=== PATIENT | male | born 1935 | race Caucasian/White ===

== ENCOUNTER 2016-12-12 01:47 | Emergency (ER) | payer MEDICARE ==
[2016-12-12 02:07] LABS: Hematocrit 42.2 % (42.0-52.0); Hemoglobin 14.4 gm/dL (13.5-18.0); Mean Cell Volume 84.4 fl (78-100); Mean Corpuscular Hemoglobin 28.8 pg (27-31); Mean Corpuscular Hgb Conc 34.1 g/dl (32-36); Mean Platelet Volume 9.3 fl (6.0-9.5); Neutrophil # 2.6 K/mm3 (1.3-6.0); Neutrophil % 48.3 % (42-75.0); Platelet Count 246 K/mm3 (150-450); Red Cell Distribution Width 12.6 % (11.5-14.0); White Blood Count 5.4 K/mm3 (4.0-10.5)
[2016-12-12 02:15] LABS: Prothrombin Time (Patient) 21.3 Seconds (9.4-11.4)
[2016-12-12 02:20] LABS: INR 2.05 INR (0.90-1.10); Partial Thrombolplastin Time 33.9 Seconds (24-32)
[2016-12-12 02:26] LABS: ALT 34 U/L (19-67); AST 26 U/L (0-48); Albumin * 3.6 gm/dl (3.4-5.0); Alkaline Phosphatase * 54 U/L (50-170); Anion Gap 9.6 mmol/L (6.8-13.8); BNP * 110 pg/mL (5-650); BUN/Creatinine Ratio 14.1 (9.0-21.6); Bilirubin, Total 0.4 mg/dL (0.0-1.1); Blood Urea Nitrogen 18 mg/dL (6-23); Ca. Corrected For Albumin 8.6 mg/dL (8.4-10.2); Calcium * 8.6 mg/dL (7.9-10.9); Carbon Dioxide 32.8 mmol/L (24-32.6); Chloride 104 mmol/L (97-106); Glucose * 113 mg/dL (70-110); Potassium 3.4 mmol/L (3.4-4.6); Sodium 143 mmol/L (132-142); Total Protein 6.6 gm/dL (6.2-8.2)
[2016-12-12 02:27] LABS: Troponin I Less than 0.017 ng/ml (0.00-0.10)
--- NOTE | 2016-12-12 03:19 | ERNOTE ---
Chest Pain/Cardiac HPI Date of Service: 12/12/16 Chief Complaint: Chest Pain Time Seen by Provider: 12/12/16 02:08 Source: patient Exam Limitations: no limitations Immunizations: IMMUNIZATION HX History of Influenza Vaccine Yes Hx Pneumococcal Vaccination No Allergies/Adverse Reactions: Allergies levofloxacin [From Levaquin] Allergy (Intermediate, Verified 12/12/16 02:04) CHEST PAIN ciprofloxacin [From Cipro] Allergy (Unknown, Verified 12/12/16 02:04) cephalexin Adverse Reaction (Mild, Verified 12/12/16 02:04) URINARY PROBLEMS Penicillins Adverse Reaction (Mild, Verified 12/12/16 02:04) ARM SWELLING AFTER INJECTION HAS TAKEN ORAL PCN WITH NO REACTION Sulfa (Sulfonamide Antibiotics) Adverse Reaction (Mild, Verified 12/12/16 02:04) RASH Home Medications: HOME MEDICATIONS Atenolol [Tenormin] 50 mg PO DAILY 06/12/12 [Last Taken 02/18/14 50 MG] Multivitamins [Multivitamin Elda] 1 cap PO DAILY 06/12/12 [Last Taken 1 CAP] [place]-3/Dha/Epa/Fish Oil [Fish Oil 1,000 mg Softgel] 1 each PO DAILY 06/12/12 [ Last Taken 02/18/14 1 EACH] Omeprazole [Prilosec Generic] 20 mg PO DAILY 06/12/12 [Last Taken 02/18/14 20 MG ] Fluticasone Propionate [Flonase] 1 spray NS BID PRN 02/16/14 [Last Taken 1 SPRAY] Glucosamine/Chondroitin Sulf A [Glucosamine Chondroitin Cap] 1 each PO DAILY [Last Taken 02/18/14 1 EACH] Warfarin Sodium [Coumadin] 3 mg PO DAILY 03/16/14 [Last Taken Unknown] amLODIPine BESYLATE [Norvasc] 10 mg PO DAILY 03/16/14 [Last Taken Unknown] Cetirizine HCl [Zyrtec] 10 mg PO DAILY PRN 03/20/16 [Last Taken Unknown] Hydrochlorothiazide [Hydrodiuril] 25 mg PO DAILY 03/20/16 [Last Taken Unknown] guaiFENesin [Mucinex] 600 mg PO DAILY 03/20/16 [Last Taken Unknown] Narrative: STATES HE AWAKENED AT 2330 WITH C/O CENTRAL CHEST PRESSURE AND SOB THAT WENT AWAY WITHIN 10 SEC WHEN HE STOOD UP. HE SAYS HE HAS A HX OF GERD BUT THAT THIS WAS NOT HEART BURN. THERE WAS NO RADIATION. HE TOOK NOTHING FOR HIS DISCOMFORT. HE IS PAIN FREE NOW. THERE WAS NO SWEATING. HE ALSO SAYS HE WAS TESTED FOR O.S.A. AND TOLD HE DID NOT HAVE IT BUT USES 2 L O2/ [place] AT NIGHT. HE WAS TOLD BY ONE DRZack THAT HE HAD COPD BUT A OPTOMETRIC TECHNOLOGIST TOLD HIM HE DID NOT AND STOPPED THE MDI HE HAD BEEN USING. HE SAW HIS PCP YESTERDAY FOR A 6 MONTH CHECK UP AND TOLD HIM ABOUT A PROBLEM HE HAD BEEN HAVING WITH SOB WHEN HE BENDS OVER TO [place] UP A GOLF BALL. HIS DR. THEN ORDERED A ECG TO BE DONE WEDNESDAY. HE DENIES A HX OF CAD BUT DOES HAVE A FIB FOR WHICH HE IS ON ATENOLOL AND WARFARIN ( HE ALSO HAD HX OF LEFT DVT) AND SAYS HE IS ALWAYS IN SINUS RHYTHM NOW. Review of Systems - Review of Systems Constitutional: Present: See HPI EYE: Present: no symptoms reported ENT: Present: no symptoms reported Respiratory: Present: See HPI, shortness of breath Cardiology: Present: See HPI, chest pain Gastrointestinal/Abdominal: Present: no symptoms reported Genitourinary: Present: no symptoms reported Musculoskeletal: Present: no symptoms reported Skin: Present: no symptoms reported Neurological: Present: no symptoms reported Endocrine: Present: no symptoms reported Hematologic/Lymphatic: Present: no symptoms reported Psych: Present: no symptoms reported All Other Systems: All systems neg except as marked - Patient's Past Medical History Patient History - Medical: GERD Patient History - Cardiac/Respiratory: Atrial Fibrillation, Deep Vein Thrombosis , Hypertension, Hyperlipidemia Patient History - Cancer: Skin Patient History - Surgical Procedures: Cholecystectomy, Colon Resection, Other Patient History - Other: None - Social History Living Situations: home Psych History: No pertinent hx Smoking Status: Former smoker Alcohol Use: none Drug Use: none - Immunizations Hx Pneumococcal Vaccination: No History of Influenza Vaccine: Yes Physical Exam - Physical Exam General Appearance: Present: wd/wn, alert, no apparent distress Respiratory: Present: no respiratory distress, normal breath sounds, no accessory muscle use, chest nontender, lungs clear Cardiovascular/Chest: Present: regular rate, rhythm, no murmur, normal peripheral pulses Peripheral Pulses: N=norm/S=strong/W=weak/B=bound/A=absent: Radial (R): Normal, Radial (L): Normal Gastrointestinal/Abdominal: Present: normal bowel sounds, nondistended, soft, no organomegaly, tenderness - MINIMAL EPIGASTRIC TENDERNESS TO PALPATION. Extremity Exam: Present: no edema Neurological Exam: Present: alert, oriented, normal mood/affect Skin Exam: Present: normal color ED Progress - Results and Orders Patient's Lab Results:: I have reviewed the patient's lab results. Results and Orders: ALL NEGATIVE INCLUDING #1 TROPONIN == > 0.017 WITH INR AT 2.05 ( HE IS ON COUMADIN.) REPEAT 4 HOUR TROPONIN IS ALSO NEGATIVE. - Vital Signs Vital Signs: Vital Signs 12/12/16 12/12/16 12/12/16 01:53 01:54 02:09 Temperature 37.4 C Pulse Rate 64 63 67 Respiratory 14 10 L Rate Blood Pressure 161/78 150/86 O2 Sat by Pulse 95 95 Oximetry 12/12/16 12/12/16 02:28 03:04 Temperature Pulse Rate 66 62 Respiratory 14 14 Rate Blood Pressure 133/70 146/86 O2 Sat by Pulse 98 98 Oximetry - EKG EKG: NSR, RBBB, unchanged from EKG read: Interp. by me - X-Ray X-Ray #1 X-Ray: chest Interpretation: Interp. by me - RIGHT LUNG UNCHANGED LEFT LUNG WITH ELEVATION OF L DIAPHRAGM AND LLL ATELECTASIS. - Progress/Reassessment Chief Complaint: Chest Pain Progress:: Improved - PAIN FREE SINCE HE GOT HERE. Departure - Departure Clinical Impression: Chest pain of unknown etiology Disposition: Home Follow Up Needed Condition: Good Instructions: Chest Pain Observation Additional Instructions: THERE IS NO SIGN OF A HEART ATTACK THIS MORNING BUT IT DOES NOT MEAN THAT YOU DO NOT HAVE CORONARY ARTERY DISEASE. YOUR SHOULD RECHECK WITH YOUR FAMILY DOCTOR ON WEDNESDAY, LET THEM KNOW YOUR WERE HERE FOR CHEST PAIN AND THEY WILL PROBABLY WANT TO EVALUATE YOU FURTHER. IT IS POSSIBLE YOUR CHEST PAIN IS DUE TO ANOTHER PROBLEM , LIKE REFLUX DISEASE THAT CAN CAUSE SPASM OF THE ESOPHAGUS OR POSSIBLY SLEEP APNEA . THEY WILL DISCUSS THIS WITH YOU. IN THE MEANTIME IT WILL NOT HURT FOR YOU TO TAKE PEPCID, OVER THE COUNTER, TWICE A DAY FOR 10 DAYS , OR UNTIL YOUR DOCTOR TELLS YOU DIFFERENTLY . Referrals: Chase Ann MD [Primary Care Provider] -
--- OUTSIDE RECORDS SUMMARY | 2016-12-12 04:22 | XMS REPORT | Continuity of Care Document ---
:1935 Author Organization [facility] ([facility]) Address [address] [place] [address] Phone [phone] Care Team Providers Name Role Phone Chase Ann Primary Care Provider [phone] Source Comments This disclosure is being made pursuant to the Care Everywhere program, applicable federal and state laws, and may not contain all informaitonavailable regarding this patient.[facility] ([facility]) Active Allergies and Adverse Reactions Allergen Noted Date Severity Reactions Comments Cephalexin 07/22/2011 OTHER Has kidney failure Cephalosporins 11/30/2012 OTHER Urination irritations Sulfa (Sulfonamide Antibiotics) 07/22/2011 OTHER Urination irritations Current Medications Prescription Sig. Disp. Refills Start Date End Date Status atenolol 50 mg tablet Take 25 mg by Active mouth daily. [place]-3 Fatty Take 1,000 mg by Active Acids-Vitamin E (FISH OIL) mouth daily. 1,000 mg Cap Cetirizine (ZYRTEC) 10 mg Take 10 mg by Active Cap mouth daily. GLUCOSAM & CHONDROIT-MV & Take 1,500 mg by Active MIN3 (GLUCOSAMINE mouth daily. &[id number] PO) warfarin 2 mg tablet Take 3 mg by Active mouth daily. MULTIVITAMIN PO Take 1 Tab by Active mouth daily. amLODIPine 10 mg tablet Take 20 mg by Active mouth daily. omeprazole 20 mg extended Take 1 Cap by 30 Cap 1 05/29/2013 Active release capsule mouth daily. Indications: PREVENTION OF STRESS ULCER hydrochlorothiazide 25 mg Take 25 mg by Active tablet mouth daily. Active Problems Problem Noted Date Subacute thyroiditis 03/12/2015 Pseudophakia, both eyes 06/06/2014 Posterior vitreous detachment, left eye 06/06/2014 PVD (posterior vitreous detachment) 06/06/2014 Scotoma, arc[place] 06/06/2014 Dizziness 05/29/2014 Peripheral vestibulopathy of left ear 05/29/2014 DVT (deep venous thrombosis) 05/28/2013 Cerebral edema 05/26/2013 Brain tumor 05/25/2013 S/P craniotomy 05/25/2013 Compression of brain 05/25/2013 Atrial fibrillation, controlled 05/25/2013 Thyroiditis 11/30/2012 Meningioma 11/30/2012 Immunizations Name Dates Previously Given Next Due Influenza, unspecified 04/25/2013,05/12/2011 Social History Tobacco Use Types Packs/Day Years Used Date Former Smoker Cigars 0.3 Quit: 07/26/1979 Smokeless Tobacco: Never Used Tobacco Cessation:Counseling Given: Yes Comments: Alcohol Use Drinks/Week oz/Week Comments Yes Last Filed Vital Signs Vital Sign Reading Time Taken Blood Pressure 123/73 04/22/2016 10:56 AM CDT Pulse 72 04/22/2016 10:56 AM CDT Temperature 36.6 C (97.9 F) 04/22/2016 10:56 AM CDT Respiratory Rate 19 05/30/2013 4:00 PM CLINICAL RESEARCH SCIENTIST Height 1.791 m (5' 10.51") 04/22/2016 10:56 AM CDT Weight 99.791 kg (220 lb) 04/22/2016 10:56 AM CDT Body Mass Index 31.11 04/22/2016 10:56 AM CDT Oxygen Saturation 94% 05/30/2013 4:00 PM CLINICAL RESEARCH SCIENTIST Plan of Care Date Type Specialty Providers Description 04/21/2017 Appointment Radiology Chief Comp: Patient Reported Reason For Visit 04/21/2017 Appointment Neurosurgery Hung Artis MD Chief Comp: Patient [address] [place] [address] [phone] (Fax) 05/09/2018 Wait List Neurology Health Maintenance Due Date Last Done Comments Hepatitis B Vaccine (1 of 3 - Primary 1935 Series) Tdap Vaccine 02[birth year]/1944 Lipid Disorder Screening 1953 Td Vaccine 1953 Colonoscopy 1983 Zoster Vaccine 1993 Pneumococcal Vaccine (1 of 2 - PCV13) 1998 Influenza Vaccine: Seasonal (#1) 02/24/2016 04/25/2013, 05/12/2011 Results from Last 3 Months Not on file
[2016-12-12 07:10] VITALS: BP 148/81
== END 2016-12-12 07:24 | disposition home or self-care (01) ==
LOC: ER 01:47
DX: R07.9 Chest pain, unspecified (principal); Z87.891 Personal history of nicotine dependence; I48.91 Unspecified atrial fibrillation; Z79.01 Long term (current) use of anticoagulants; Z86.718 Personal history of other venous thrombosis and embolism; I10 Essential (primary) hypertension; K21.9 Gastro-esophageal reflux disease without esophagitis; Z85.828 Personal history of other malignant neoplasm of skin; R73.01 Impaired fasting glucose

== ENCOUNTER 2017-03-31 06:50 | Day surgery (SDC) | payer MEDICARE ==
[~2017-03-31 06:50] MED LIST: RINGER'S SOLUTION,LACTATED 1,000 ML IV PRN
[2017-03-31] MEDS: RINGER'S SOLUTION,LACTATED 1,000 ML IV ONE ×3 (07:25→08:40)
[2017-03-31] MEDS ORDERED: RINGER'S SOLUTION,LACTATED 1,000 ML IV PRN (09:36)
[2017-03-31 11:22] VITALS: BP 109/60
--- NOTE | 2017-03-31 18:42 | OR ---
Operative Report - Dictated Report Narrative: OPERATIVE REPORT DATE OF OPERATION: 03/31/2017 PREOPERATIVE DIAGNOSIS: History of colon polyp. No recent dedicated colon studies. POSTOPERATIVE DIAGNOSIS: Colon polyps at 100 cm, 80 cm, 70 cm, 50 cm, 45 cm 2 , and 40 cm. (Pathology pending) Significant sigmoid diverticulosis OPERATION: Colonoscopy with hot biopsy forceps polypectomies 7 SURGEON: Camilo Brown MD ANESTHESIA: HEIDI Sung CRNA INDICATIONS FOR PROCEDURE: The patient is an 82-year-old male referred by JAYDE Irene. 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 His last colon exam by Dr. Hernandez was normal in 2004 FINDINGS: 3-5mm polyps at 100 cm, 80 cm, 70 cm, 50 cm, 45 cm 2, and 40 cm. Significant sigmoid diverticulosis NARRATIVE OF PROCEDURE: The patient was identified in the holding area, and prior to the administration of anesthetic, a multidisciplinary timeout was observed. With the patient in the left lateral position and after the administration of intravenous sedation, the perineum was inspected. There was no evidence of pilonidal disease or skin breakdown. The external appearance of the anus was normal. Sphincter tone was good. The flexible fiberoptic colonoscope was inserted into the rectum which was insufflated with air. The rectal mucosa and submucosal vascular pattern appeared normal, the prep was seen to be complete. The scope was advanced through the sigmoid colon, which contained numerous large non-impacted noninflamed diverticular openings. The scope was advanced up the descending colon, and around the splenic flexure where the triangular haustral architecture of the transverse colon was seen. The scope was advanced across the transverse colon, around the hepatic flexure to the cecum, where the confluence of tenia and the ileocecal valve were identified. The mucosa at this level appeared normal. The scope was then slowly withdrawn in a circular fashion so that all aspects of colonic mucosa were inspected. The colon was relatively normal in course and caliber. The haustral architecture appeared well preserved throughout with no evidence of external compression. The mucosa and submucosal vascular pattern appeared normal, specifically there was no gross evidence to suggest colitis or inflammatory bowel disease and no AV malformations were seen. The diverticulosis was significant and agreeing confined primarily to the sigmoid colon. Polyps were encountered at 100 cm, 80 cm, 70 cm, 50 cm, 45 cm 2, and 40 cm. These appeared adenomatous in character and ranged between 3 and 5 mm in size. The scope was gradually withdrawn to the level of the rectum. As much insufflated air as possible was removed. The scope was withdrawn from the patient and the procedure terminated. The patient tolerated the anesthetic and procedure well without complication and was transferred back to the ambulatory surgery area awake and in stable condition. The patient remained stable throughout a period of postoperative observation. He denied abdominal discomfort, was able to tolerate by mouth intake, and was up without assistance. I shared the operative findings with the patient and he was given copies of the photographs which appear in the medical record. He was discharged home with instructions not to engage in hazardous activity today, but may resume normal activity tomorrow, and advance diet as tolerated. He is to continue those medications as listed in the history and physical exam. He is to restart his Coumadin tomorrow evening at a 3 mg daily dose. He will follow-up in the anticoagulation clinic for monitoring. He has phone numbers to call if he does have bleeding. I made arrangements to contact him with the biopsy reports and will make additional recommendations for treatment and follow -up based upon those results. Reviewed and electronically signed
== END 2017-03-31 06:51 | disposition home or self-care (01) ==
LOC: AMB 06:50
PROVIDERS: ATTEND Surgery
PROC: 0DBE8ZX Excision of Large Intestine, Via Natural or Artificial Opening Endoscopic, Diagnostic (ICD-10-PCS; principal; 2017-03-31 08:00)
DX: Z12.11 Encounter for screening for malignant neoplasm of colon (principal); K63.5 Polyp of colon; K57.30 Diverticulosis of large intestine without perforation or abscess without bleeding; I10 Essential (primary) hypertension; E78.5 Hyperlipidemia, unspecified; E03.9 Hypothyroidism, unspecified; I48.91 Unspecified atrial fibrillation; K21.9 Gastro-esophageal reflux disease without esophagitis; N40.0 Benign prostatic hyperplasia without lower urinary tract symptoms; G47.33 Obstructive sleep apnea (adult) (pediatric); Z68.32 Body mass index [BMI] 32.0-32.9, adult; Z86.010 Personal history of colon polyps

== ENCOUNTER 2020-11-11 08:00 | Inpatient (IN) ==
--- NOTE | 2020-11-06 08:39 | ANES ---
Anesthesia Pre Procedure Eval HOME MEDICATIONS Multivitamins [Multivitamin Elda] 1 cap PO DAILY 06/12/12 [Last Taken 02/18/14 1 CAP] [place]-3/Dha/Epa/Fish Oil [Fish Oil 1,000 mg Softgel] 1 ea PO DAILY 06/12/12 [Last Taken 02/18/14 1 EACH] Cetirizine HCl [Zyrtec] 10 mg PO DAILY PRN 03/20/16 [Last Taken Unknown] Hydrochlorothiazide [Hydrodiuril] 25 mg PO DAILY 03/20/16 [Last Taken Unknown] Diltiazem HCl [Cardizem LA] 360 mg PO DAILY 06/16/17 [Last Taken Unknown] glucosamine 116 mg-chondroitin 100 mg-dietary supplement #25 capsule 1 cap PO DA REHAN 03/04/18 [Last Taken Unknown] Montelukast Sodium [Singulair] 10 mg PO DAILY 12/03/18 [Last Taken Unknown] ascorbic acid (vitamin C) 1,000 mg tablet 1 g PO DAILY #30 tab 12/08/18 [Last Taken Unknown] atorvastatin 20 mg tablet 20 mg PO DAILY 03/04/20 [Last Taken Unknown] ferrous sulfate 325 mg (65 mg iron) tablet 325 mg PO BID #60 tab 05/17/20 [Last Taken Unknown] potassium chloride 10 mEq tablet,extended release(part/cryst) 30 meq PO DAILY #90 tab 07/11/20 [Last Taken Unknown] omeprazole 20 mg capsule,delayed release 20 mg PO DAILY #90 cap 07/17/20 [Last Taken Unknown] atenolol 50 mg tablet 25 mg PO DAILY #90 tab 11/01/20 [Last Taken Unknown] warfarin 2 mg tablet 3 mg PO DAILY #90 tab 11/01/20 [Last Taken Unknown] Allergies/Adverse Reactions: Allergies Allergy/AdvReac Type Severity Reaction Status Date / Time Sulfa (Sulfonamide Allergy Mild RASH Verified 11/04/20 10:35 Antibiotics) ciprofloxacin [From Cipro] Allergy Unknown Other Verified 11/04/20 10:35 cephalexin AdvReac Mild URINARY Verified 11/04/20 10:35 PROBLEMS - Planned Procedure Planned Procedure: left Arthroplasty Total Knee Medical History (Last Reviewed 11/04/20 @ 10:36 by Maria Eugenia Caraballo LPN) Arrhythmia Onset Date: Unknown Arthritis Onset Date: Unknown Atrial fibrillation Onset Date: Unknown BPH (benign prostatic hyperplasia) Onset Date: Unknown Erectile dysfunction Onset Date: Unknown GERD (gastroesophageal reflux disease) Onset Date: Unknown HTN (hypertension) Onset Date: Unknown Hiatal hernia Onset Date: Unknown Hyperlipidemia Onset Date: Unknown Hyperthyroidism Onset Date: Unknown KECIA (obstructive sleep apnea) Onset Date: 01/21/17 Calculus of kidney Onset Date: Unknown Cataract Onset Date: Unknown DVT (deep venous thrombosis) Onset Date: ~11/2009 Dizziness Onset Date: 02/19/14 Nonspecific Meningioma Onset Date: Unknown Palpitations Onset Date: Unknown Pulmonary embolism Onset Date: ~11/2009 Shoulder pain Onset Date: Unknown Rt Vertigo Onset Date: Unknown Central Surgical History (Last Reviewed 11/04/20 @ 10:36 by Maria Eugenia Caraballo LPN) H/O arthroscopy of left knee Onset Date: ~2010 H/O prostatectomy Onset Date: 12/12/08 Dr. Car Bartholomew -[facility]suprapubic History of appendectomy Onset Date: ~1987 [facility] History of cardiac catheterization Onset Date: 04/08/17 Hx of cataract surgery Onset Date: 04/09/14 03/19/14-left, 04/09/14-right Hx of cholecystectomy Onset Date: ~1982 [facility] Hx of colonoscopy Onset Date: 03/26/20 01/09/05 David-normal. 03/31/17 Dr. Brown - tubular adenoma x3, hyperplastic x4. Recheck 3 yrs. 03/26/20 Stephanie-tubular adenoma x5. Recheck 3-5 yrs. Hx of craniotomy Onset Date: ~04/2013 Left-sided frontal craniotomy for tumor resection Hx of exploratory laparotomy Onset Date: Unknown Hx of meningioma removal Onset Date: 05/25/13 [facility]- atypical Hx of right hemicolectomy Onset Date: ~1987 due to tubulovillous adenoma Skin cancer removal Onset Date: ~11/2015 Dr. Joseph - forearm Family History (Last Reviewed 11/04/20 @ 10:36 by Maria Eugenia Caraballo LPN) Father , age 59 CVA (cerebral vascular accident) Mother , age 72 Liver disease Tuberculosis At young age Brother , age 88 Alzheimers disease Brother Alive and well Sister Alive and well Sister , age 90 -old age No problems noted. - Respiratory Respiratory History: sleep apnea, CPAP/BiPAP home use Smoking Status: Former smoker Discussed smoking cessation including day of surgery: No Sleep Apnea currently treated: Yes Sleep Apnea by current assessment: Yes Discussed Risks/Treatment of KECIA: Yes - Cardiovascular Tolerate Activity: Fair Heart Sounds: S1 & S2, Regular - Anesthesia Assessment and Plan ASA Class: PS, III Anesthesia Type Plan: Block - Left ultrasound guided adductor canal nerve block for postop anangesia, Spinal
[~2020-11-11 08:00] MED LIST changes: +MORPHINE SULFATE 15 MG TABLET.SA PO PRN; -RINGER'S SOLUTION,LACTATED 1,000 ML IV PRN; +ROPIVACAINE/CLONIDIN/KETOROLAC 50 ML SYRINGE IJ PRN; +TRANEXAMIC ACID 1,000 MG in NORMAL SALINE 100 ML IV PRN; +ceFAZolin SODIUM 1 GM VIAL IV PRN
[2020-11-11] MEDS ORDERED: ceFAZolin SODIUM 1 GM VIAL ONE (10:11)
[2020-11-11] MEDS ORDERED: ROPIVACAINE/CLONIDIN/KETOROLAC 50 ML SYRINGE IJ ONE (10:11)
[2020-11-11] MEDS ORDERED: BUPIVACAINE HCL/PF 10 ML VIAL ONE (11:22)
[2020-11-11] MEDS ORDERED: PROPOFOL VIAL IV ONE (11:22)
[2020-11-11] MEDS ORDERED: MIDAZOLAM HCL/PF 5 MG/ML VIAL ONE (11:22)
[2020-11-11] MEDS ORDERED: BUPIVACAINE HCL/EPINEPHRINE 50 ML VIAL IJ ONE (11:22)
[2020-11-11 11:36] LABS: INR 1.17 INR (0.92-1.08); Prothrombin Time (Patient) 12.1 Seconds (9.1-10.7)
[2020-11-11] MEDS: RINGER'S SOLUTION,LACTATED 1,000 ML IV PRN ×3 (11:48→13:45)
[2020-11-11] MEDS ORDERED: oxyCODONE HCL/ACETAMINOPHEN 1 TAB TABLET PO PRN (13:49)
[2020-11-11] MEDS ORDERED: diphenhydrAMINE HCL 50 MG/ML VIAL IV PRN (13:49)
[2020-11-11] MEDS ORDERED: MORPHINE SULFATE 2 MG/ML DISP.SYRIN IV PRN (13:49)
[2020-11-11] MEDS ORDERED: MAG HYDROX/ALUMINUM HYD/SIMETH 30 ML UDC PO PRN (13:49)
[2020-11-11] MEDS ORDERED: ZOLPIDEM TARTRATE 5 MG TABLET PO PRN (13:49)
[2020-11-11] MEDS ORDERED: ACETAMINOPHEN 500 MG TABLET PO PRN (13:49)
[2020-11-11] MEDS ORDERED: MAGNESIUM HYDROXIDE 30 ML UDC PO PRN (13:49)
[2020-11-11] MEDS ORDERED: DEXTROSE 5%-LACTATED RINGERS 1,000 ML IV PRN (13:49)
[2020-11-11] MEDS ORDERED: ONDANSETRON HCL/PF 2 MG/ML VIAL IV PRN (13:49)
[2020-11-11] MEDS ORDERED: LORATADINE 10 MG TABLET PO PRN (13:52)
[2020-11-11] MEDS ORDERED: ASCORBIC ACID 500 MG TABLET PO PRN (13:52)
[2020-11-11] MEDS ORDERED: MONTELUKAST SODIUM 10 MG TABLET PO PRN (13:52)
--- NOTE | 2020-11-11 13:55 | OR ---
Operative Report - Dictated Report Narrative: Date: 11/11/2020 Preoperative diagnosis: Left knee degenerative joint disease. Postoperative diagnosis: Left knee degenerative joint disease. Procedure: Left total knee arthroplasty. Surgeon: Feliciano Navarrete M.D. Donor Relations Manager: Kerwin Lewis PA-C (provided and essential set of skilled, educated hands that assisted with transfer, positioning, prepping, draping, manipulation, retraction, placement of jigs, injection, insertion of implants, irrigation, closure wounds, and dressings all of which could not be performed by the available surgical crew) Anesthesia: Spinal with regional block and local periarticular joint injection. Complications: None Specimens: Bone. Estimated blood loss: Minimal. Tourniquet time: 85 Minutes at 325 millimeters of mercury. Retained implants: Depuy Attune size 8 left lugged cemented posterior stabilized femoral component. Size 8 fixed-bearing cemented tibial platform. 8 by 5 millimeter posterior stabilized cross-linked tibial insert. 41 millimeter medialized patella button. Indications: Mr. Milian is a 85-year-old gentleman who has had longstanding left knee pain and arthrosis. This patient was followed in my clinic for period of time with significant complaints of left knee pain consistent with arthritic changes. He had failed conservative measures including, but not limited to, activity modification, passage of time, medications, and other conservative measures. Patient wished to proceed with surgical treatment. The risks, benefits, and alternatives were discussed in clinic. The risks of , blood clots, bleeding, infection, nerve/tendon blood vessel/ injury, malposition of components, intraoperative fracture, postoperative limited range of motion, persistent pain, failure of components, and need for additional procedures. Patient wished to proceed consent was obtained after answering all questions. Procedure: After marking the correct extremity on the floor, the patient was taken to the operating room. A timeout was performed. IV antibiotics consisting of Ancef were administered prior to the procedure. A regional followed by spinal anesthetic was induced by anesthesia, per my request, on the operative table with all bony prominences well-padded. Cristobal catheter was placed, and a bump was placed under the operative side buttock. SCDs and TYREL hose were utilized on the nonoperative leg. A well-padded tourniquet was applied to the operative thigh. The operative leg was then pre-scrubbed with alcohol, prepped, and draped in a standard sterile fashion. After exsanguinating the extremity with an Esmarch bandage, the tourniquet was inflated. After marking out the anterior knee for standard incision centered over the patella, the skin was incised and dissected down to the joint retinaculum. The joint retinaculum was marked out as well as the horizontal axis of the patella, and a standard medial parapatellar arthrotomy was then made. The most proximal aspect of the quadriceps tendon and the patella tendon insertion were protected from release. A partial synovectomy was performed as well as a resection of the infrapatellar fat pad. The distal femoral fat pad proximal to the trochlea was also resected using cautery. The soft tissues were elevated off the medial aspect of the proximal tibia using a Greenwood elevator ensuring that we did not transect the medial collateral ligament. Upon initial evaluation range of motion was approximately 0 degrees to 130 degrees of flexion. There were signs of advanced arthrosis in the medial and patellofemoral greater than lateral joint spaces. There were large marginal osteophytes which were removed with a rongeur. The knee was hyperflexed and the patella was tucked laterally. Protecting the surrounding soft tissues with Homans, an entry drill was placed down the femoral canal using Whitesides line for guidance into the entry point. The intramedullary femoral alignment gin was utilized in order to cut the distal femur in 5 degrees of valgus resecting 10 millimeters of bone. Next the distal femur was sized to a size 8. A posterior referencing guide was utilized to place the distal femoral cutting block in 3 degrees of external rotation. This was pinned into place. The rotation was confirmed both visually and based on anatomic landmarks. The 4 in 1 cutting jig of the appropriate size was utilized in order to make all bony cuts. The ced wing was used to ensure no notching. Retractors were utilized in order to protect surrounding soft tissues. This cut did not result in any excessive notching. We then cut the box centered over the distal femur. This allowed for resection of the anterior and posterior cruciate ligaments. I then turned my attention to the preparation of the tibia. Using an extra medullary tibial alignment gin, 4 millimeters of bone was resected off the medial articular surface. This was made perpendicular to the mechanical axis of the joint with the alignment gin centered over the ankle mortise. The alignment gin was checked and was noted to be parallel to the mechanical axis, centered over the medial one third of the tibial tubercle, paralleling the anterior surface of the tibia. We then turned our attention to the remaining meniscus and soft tissues. These were removed while protecting the surrounding ligaments and soft tissues. The marginal osteophytes off the anterior, posterior, medial, lateral aspects of the femur and tibia were removed. The tibia was sized out to a size 8. Next the tibia was drilled and punched in an externally rotated position. Next the trial femur and a series of tibial inserts were utilized in order to allow for full extension and maximal flexion. It was found that a 5 millimeter insert gave the best range of motion and stability at multiple flexion points as well as at full extension there was less than 2 mm of gapping both medially and laterally. There is minimal anterior translation with the knee at 90 degrees of flexion and no signs of being able to dislocate the knee. The patella was then prepared. The initial thickness was 25 millimeters. This was reamed down to 15 millimeters parallel to the anterior surface of the patella. It was sized out to a size 41 medialized patella button. This was then drilled and trialed. Without any medial restraint the patella tracked appropriately and did not sublux or dislocate. At this point, it was felt these were the appropriate sized implants, and all trials were removed. The standard periarticular joint injection consisting of ropivacaine, Toradol, and epinephrine were injected into the periarticular joint tissues. The bony surfaces were thoroughly irrigated with a pulsatile-suction saline irrigation device. A bone plug from the prior resected anterior chamfer cut was placed into the drill hole at the distal femur. The bony surfaces were then dried in preparation for placement of the implants. The cement was vacuum mixed per the offset press operator apprentice's instructions. The cement was placed on the dry bony surfaces and posterior aspect of the implants. The implants were impacted into place, removing all extruded cement. At this point anesthesia administered tranexamic acid per protocol intravenously. The knee was placed in extension with axial loading with the trial insert while the cement cured. Once the cement cured, all remaining extruded cement was removed. The knee was placed through a range of motion with the trial insert to ensure appropriate range of motion and stability. Final range of motion was approximately 0 to 130 degrees. The knee was again thoroughly irrigated with pulsatile saline lavage. The final polyethylene insert was then impacted into place ensuring no retained soft tissues. The remaining periarticular joint injection was injected. A medium Hemovac drain was placed exiting superior laterally. The knee was then placed over a triangle and the arthrotomy was closed with interrupted #1 Vicryl after thoroughly irrigating the joint. The deep and subcutaneous tissues were closed with interrupted 0 and 3-0 Vicryl respectively. Skin was closed with a running subcutaneous 3-0 Monocryl and Prineo Dermabond dressing. 4 x 4's, Sof-Rol, and a full leg Delmar wrap were applied. All sponge, needle, blade, and instrument counts were correct prior to closing the wounds. Postoperative condition: The patient was awoken and transferred to the postanesthesia care unit in stable condition. Plan is to be admitted to the inpatient medical/surgical floor postoperatively for 24 hours of IV antibiotics, physical therapy, occupational therapy, and medical comanagement. Patient will be weightbearing as tolerated with range of motion as tolerated. DVT prophylaxis will be with SCDs, TYREL hose, and pharmacological anticoagulation. Anticipated hospital stay is approximately 1-3 days.
--- NOTE | 2020-11-11 14:17 | ANES ---
Post Anesthesia Discharge - Transfer of Care Transfer of Care handoff given to nurse: Yes - Discharge from PACU Discharge from PACU when meets criteria: Yes
--- NOTE | 2020-11-11 14:20 | ANES ---
Anesthesia Procedure Note Procedure Note: ANESTHESIA PROCEDURE NOTE Date of procedure: 11/11/2020. Time of procedure: 1210. Performed by: Del Sung CRNA Harvest Supervisor: Marilyn Matthews RN . Preprocedure diagnosis: Left knee DJD. Post procedure diagnosis: Same. Procedure: Ultrasound-guided left adductor canal Indications: Postoperative analgesia. Findings: Patient brought to operating room #4, sedated, and given a spinal anesthetic. The patient's left inner thigh was prepped with ChloraPrep. Ultrasound utilized to identify the saphenous nerve in the left adductor canal. 20-gauge 4 inch regional block needle was advanced under ultrasound guidance until tip of needle was placed just proximal to saphenous nerve. 30 mL of 0.25% Marcaine with epinephrine 1 200,000 was injected with adequate spread of local anesthesia noted around the nerve. Regional block needle was removed intact. EBL: Minimal. Fluids: N/A. Specimen: N/A. Post procedure condition: The patient tolerated the procedure well. No complications were noted. Thank you for this consultation Del Sung CRNA
--- NOTE | 2020-11-11 14:33 | ANES ---
Post Anesthesia Assessment - Vital Signs Vitals: Last Vital Signs Temp 36.5 C 11/11/20 14:20 Pulse 53 L 11/11/20 14:20 Resp 14 11/11/20 14:20 BP 119/53 11/11/20 14:20 Pulse Ox 98 11/11/20 14:20 Airway Patency: Normal - Mental Status Level Of Consciousness: Awake - Pain Level Pain Score: 0 - N/V Assessment Nausea/Vomiting Presence: None Dehydration:: No
[2020-11-11] MEDS: KETOROLAC TROMETHAMINE 15 MG/ML VIAL IV SCH ×2 (14:37→20:44)
[2020-11-11] MEDS: ceFAZolin SODIUM 1 GM in DEXTROSE 5 % IN WATER 100 ML IV SCH ×4 (14:48→20:52)
[2020-11-11] MEDS ORDERED: WARFARIN SODIUM 5 MG TABLET PO ONE (17:00)
[2020-11-11] MEDS ORDERED: SENNOSIDES/DOCUSATE SODIUM 1 TAB TABLET PO SCH (21:00)
[2020-11-12] MEDS: KETOROLAC TROMETHAMINE 15 MG/ML VIAL IV SCH (03:22)
[2020-11-12] MEDS: ceFAZolin SODIUM 1 GM in DEXTROSE 5 % IN WATER 100 ML IV SCH ×2 (03:26)
[2020-11-12 06:19] LABS: Hematocrit 41.3 % (42.0-52.0); Hemoglobin 13.2 gm/dL (13.5-18.0); Mean Cell Volume 87.9 fl (78-100); Mean Corpuscular Hemoglobin 28.1 pg (27-31); Mean Platelet Volume 9.4 fl (8-11.3); Platelet Count 216 K/mm3 (150-450); Red Cell Distribution Width 14.3 % (11.5-14.0); White Blood Count 8.1 K/mm3 (4.0-10.5)
[2020-11-12 06:26] LABS: Calcium * 8.1 mg/dL (7.9-10.9); Carbon Dioxide 29.5 mmol/L (24-32.6); Estimated Creat Clear 35.9; Potassium 3.5 mmol/L (3.4-4.6)
[2020-11-12] MEDS ORDERED: PANTOPRAZOLE SODIUM 20 MG TABLET.DR PO SCH (07:00)
[2020-11-12 08:44] LABS: Prothrombin Time (Patient) 12.6 Seconds (9.1-10.7)
[2020-11-12 08:55] LABS: INR 1.22 INR (0.92-1.08)
[2020-11-12] MEDS ORDERED: FERROUS SULFATE 325 MG TABLET PO SCH (09:00)
[2020-11-12] MEDS ORDERED: ATENOLOL 25 MG TABLET PO SCH (09:00)
[2020-11-12] MEDS ORDERED: HYDROCHLOROTHIAZIDE 25 MG TABLET PO SCH (09:00)
[2020-11-12] MEDS ORDERED: POTASSIUM CHLORIDE 10 MEQ TABLET.SA PO SCH (09:00)
[2020-11-12] MEDS ORDERED: ROSUVASTATIN CALCIUM 10 MG TABLET PO SCH (09:00)
[2020-11-12] MEDS ORDERED: MULTIVITAMINS 1 CAP CAPSULE PO SCH (09:00)
[2020-11-12] MEDS ORDERED: OMEGA-3 FATTY ACIDS 1 CAP CAPSULE PO SCH (09:00)
[2020-11-12] MEDS ORDERED: DILTIAZEM HCL 180 MG CAP.SR.24H PO SCH (09:00)
--- NOTE | 2020-11-12 16:22 | DS ---
(1) Status post total left knee replacement Problem: Acute (2) Nausea Problem: Acute Date of Discharge:: 11/12/20 Hospital Course: 85-year-old male postop day 1 status post left total knee arthroplasty. Patient overall has had an uncomplicated hospital stay. He was admitted postoperatively for monitoring, pain control, PT/OT, postoperative complication monitoring. Patient overall has been off his goals with PT/OT, return to p.o. diet without any complication. He is having mild nausea that would be treated with Zofran. His pain is otherwise under control with extra strength Tylenol at this time. Patient is at no other acute complications. Patient did note concerned about complications with the stool color. Note no abnormal maladies amongst his lab findings. Patient will be scheduled to follow-up with his PCP for further recommendations and continued work-up. Exam today reveals left lower extremity--> pernio dressing in place no significant erythema or drainage, sensation touch light touch, 5/5 plantarflexion and dorsiflexion ankle, distal capillary refill brisk, diffuse mild tenderness about left knee. Patient will continue with following recommendations: -Weightbearing as tolerated, assistive device as needed -PT/OT progress as tolerated -Nausea, Zofran to be prescribed as needed -Pain control: P.o. pain medication as prescribed, discussed use of narcotics and possible complications -DVT prophylaxis: resume Coumadin baseline dose, continue monitoring per PCP -P.o. diet as tolerated -Pernio dressing in place, monitor for erythema or drainage -Disposition: Discharge home with outpatient physical therapy follow-up with outpatient orthopedic clinic as scheduled scheduled appointment follow-up with PCP for chronic medical conditions. Procedures Performed: see notes below List Procedures: Status post left total knee arthroplasty Results and Findings: Lab Pending Results 11/11/20 11:24: PT 12.1 H, INR (Anticoag Therapy) 1.17 H 11/12/20 06:05: WBC 8.1, RBC 4.70, Hgb 13.2 L, Hct 41.3 L, MCV 87.9, MCH 28.1, MCHC 32.0, RDW 14.3 H, Plt Count 216, MPV 9.4 11/12/20 06:05: Sodium 139, Plasma Sodium 139, Potassium 3.5, Chloride 105, Carbon Dioxide 29.5, Anion Gap 8.0, BUN 27 H, Creatinine 1.50 H, Est GFR (Non-Af Amer) 47 L, BUN/Creatinine Ratio 18.0, Random Glucose 110, Calcium 8.1 11/12/20 08:25: PT 12.6 H, INR (Anticoag Therapy) 1.22 H Discharge Location: Home Disposition: Home self-care Condition: Stable Discharge Activity: Activity as tolerated, Weight bearing - Assistive device PRN Discharge Diet: General/regular food Referrals: Chase Ann MD [Primary Care Provider] - Problem Oriented Discharge Instructions to Patient/Family: Total Knee Re placement, [id number] Print Language (Divehi or Portuguese Available): Divehi Additional Patient Instructions (free text): Physical Therapy at [facility] outpatient rehab on WednesdayNovember 13 at 8:30am. Follow up [facility] Orthopedic office appointment on WednesdayDecember 03 at 9:00am. Prescriptions (Any new or edited meds): HYDROcodone/ACETAMINOPHEN [Hydrocodone-Acetamin 5-325 mg] 1 each PO QID PRN #20 tablet PRN Reason: Pain Transmission Status: Received by [place], [place] Sennosides/Docusate Sodium [Senokot-S] 2 tab PO HS #60 tab Transmission Status: Pending to [place], [place] Ondansetron [Zofran Odt] 4 mg PO Q8H PRN #20 tab PRN Reason: Nausea Transmission Status: Pending to [place], [place] Complete Home Medications List: Complete Home Medication List: Multivitamins [Multivitamin Elda] 1 cap PO DAILY 06/12/12 [place]-3/Dha/Epa/Fish Oil [Fish Oil 1,000 mg Softgel] 1 ea PO DAILY 06/12/12 Cetirizine HCl [Zyrtec] 10 mg PO DAILY PRN 03/20/16 Hydrochlorothiazide [Hydrodiuril] 25 mg PO DAILY 03/20/16 Diltiazem HCl [Cardizem LA] 360 mg PO DAILY 06/16/17 glucosamine 116 mg-chondroitin 100 mg-dietary supplement #25 capsule 1 cap PO DAILY 03/04/18 Montelukast Sodium [Singulair] 10 mg PO DAILY PRN 12/03/18 atorvastatin 20 mg tablet 20 mg PO DAILY 03/04/20 omeprazole 20 mg capsule,delayed release 20 mg PO DAILY #90 cap 07/17/20 atenolol 50 mg tablet 25 mg PO DAILY #90 tab 11/01/20 warfarin 2 mg tablet 3 mg PO DAILY #90 tab 11/01/20 Ferrous Sulfate [Iron] 325 mg PO DAILY 11/06/20 Potassium Chloride [Klor-Con M10] 10 meq PO DAILY 11/06/20 Ascorbic Acid [Vitamin C] 1 g PO DAILY PRN 11/11/20 HYDROcodone/ACETAMINOPHEN [Hydrocodone-Acetamin 5-325 mg] 1 each PO QID PRN #20 tablet 11/12/20 Ondansetron [Zofran Odt] 4 mg PO Q8H PRN #20 tab 11/12/20 Sennosides/Docusate Sodium [Senokot-S] 2 tab PO HS #60 tab 11/12/20 Forms: Patient Portal Registration
[2020-11-12] MEDS ORDERED: WARFARIN SODIUM 3 MG TABLET PO SCH (17:00)
[2020-11-12 17:09] VITALS: BP 136/67
== END 2020-11-12 17:30 | disposition home or self-care (01) | DRG 470 ==
LOC: MS 10:42 → EDSTATUS 10:45
PROVIDERS: ADMIT Orthopaedic Surgery; ATTEND Orthopaedic Surgery

== ENCOUNTER 2020-12-23 15:51 | Inpatient (IN) ==
[2020-12-23] MEDS ORDERED: NORMAL SALINE 1,000 ML IV ONE (18:29)
[2020-12-23] MEDS ORDERED: LORazepam 2 MG/ML DISP.SYRIN IV ONE (18:31)
[2020-12-23 18:41] LABS: Hematocrit 39.5 % (42.0-52.0); Hemoglobin 12.7 gm/dL (13.5-18.0); Mean Cell Volume 83.9 fl (78-100); Mean Corpuscular Hgb Conc 32.2 g/dl (32-36); Mean Platelet Volume 8.8 fl (8-11.3); Neutrophil # 5.6 K/mm3 (1.3-6.0); Neutrophil % 68.3 % (42-75.0); Platelet Count 416 K/mm3 (150-450); Red Blood Count 4.71 M/mm3 (4.7-6.0); Red Cell Distribution Width 13.3 % (11.5-14.0); White Blood Count 8.2 K/mm3 (4.0-10.5)
[2020-12-23 19:07] LABS: ALT 25 U/L (19-67); AST 19 U/L (0-48); Albumin * 3.8 gm/dl (3.4-5.0); Alkaline Phosphatase * 78 U/L (50-170); BUN/Creatinine Ratio 8.1 (9.0-21.6); Bilirubin, Total 0.7 mg/dL (0.0-1.1); Blood Urea Nitrogen 33 mg/dL (6-23); Ca. Corrected For Albumin 8.4 mg/dL (8.4-10.2); Calcium * 8.6 mg/dL (7.9-10.9); Carbon Dioxide 25.9 mmol/L (24-32.6); Chloride 102 mmol/L (97-106); Glucose * 120 mg/dL (70-110); Potassium 2.9 mmol/L (3.4-4.6); Sodium 141 mmol/L (132-142); Total Protein 6.9 gm/dL (6.2-8.2); Troponin I Less than 0.017 ng/mL (0.00-0.10)
--- NOTE | 2020-12-23 20:09 | ERNOTE ---
Medical Problem HPI - Narrative Date of Service: 12/23/20 - General Chief Complaint: General Assessment Time Seen by Provider: 12/23/20 17:24 - Immun/Allergies/Home Medications Immunizations: IMMUNIZATION HX Immunizations Up to Date Yes History of Influenza Vaccine Yes Hx Pneumococcal Vaccination Yes Allergies/Adverse Reactions: Allergies Sulfa (Sulfonamide Antibiotics) Allergy (Mild, Verified 12/20/20 16:33) RASH ciprofloxacin [From Cipro] Allergy (Unknown, Verified 12/20/20 16:33) URINARY PROBLEMS reduces kidney function cephalexin Adverse Reaction (Mild, Verified 12/20/20 16:33) URINARY PROBLEMS Home Medications: HOME MEDICATIONS Multivitamins [Multivitamin Elda] 1 cap PO DAILY 06/12/12 [Last Taken 02/18/14 1 CAP] [place]-3/Dha/Epa/Fish Oil [Fish Oil 1,000 mg Softgel] 1 ea PO DAILY 06/12/12 [Last Taken 02/18/14 1 EACH] Cetirizine HCl [Zyrtec] 10 mg PO DAILY PRN 03/20/16 [Last Taken Unknown] Hydrochlorothiazide [Hydrodiuril] 25 mg PO DAILY 03/20/16 [Last Taken Unknown] Montelukast Sodium [Singulair] 10 mg PO DAILY PRN 12/03/18 [Last Taken Unknown] atorvastatin 20 mg tablet 20 mg PO DAILY 03/04/20 [Last Taken Unknown] warfarin 2 mg tablet 3 mg PO DAILY #90 tab 11/01/20 [Last Taken 11/05/20 18:00] Ascorbic Acid [Vitamin C] 1 g PO DAILY PRN 11/11/20 [Last Taken Unknown] Sennosides/Docusate Sodium [Senokot-S] 2 tab PO HS #60 tab 11/12/20 [Last Taken Unknown] ferrous sulfate 325 mg (65 mg iron) tablet 325 mg PO DAILY 12/18/20 [Last Taken Unknown] atenolol 50 mg tablet 50 mg PO DAILY #90 tab 12/20/20 [Last Taken Unknown] omeprazole 20 mg capsule,delayed release 40 mg PO DAILY #60 cap 12/20/20 [Last Taken Unknown] potassium chloride 10 mEq tablet,extended release(part/cryst) 20 meq PO DAILY tab 12/20/20 [Last Taken Unknown] Medical History (Last Reviewed 12/23/20 @ 17:56 by Goldie Lester RN) COVID-19 vaccine series completed [employer] on 09/30/2020. HARLEY Trejo Arrhythmia Onset Date: Unknown Arthritis Onset Date: Unknown Atrial fibrillation Onset Date: Unknown BPH (benign prostatic hyperplasia) Onset Date: Unknown Erectile dysfunction Onset Date: Unknown GERD (gastroesophageal reflux disease) Onset Date: Unknown HTN (hypertension) Onset Date: Unknown Hiatal hernia Onset Date: Unknown Hyperlipidemia Onset Date: Unknown Hyperthyroidism Onset Date: Unknown KECIA (obstructive sleep apnea) Onset Date: 01/21/17 uses CPAP Calculus of kidney Onset Date: Unknown Cataract Onset Date: Unknown DVT (deep venous thrombosis) Onset Date: ~11/2009 Dizziness Onset Date: 02/19/14 Nonspecific Meningioma Onset Date: Unknown Palpitations Onset Date: Unknown Pulmonary embolism Onset Date: ~11/2009 Shoulder pain Onset Date: Unknown Rt Vertigo Onset Date: Unknown Central Surgical History: Surgical History (Last Reviewed 12/23/20 @ 17:56 by Goldie Lester RN) History of cardiac catheterization (Resolved) Onset Date: 04/08/17 x3 total S/P total knee arthroplasty Onset Date: ~11/11/20 Procedure: Left total knee arthroplasty. Dr. Navarrete H/O arthroscopy of left knee Onset Date: ~2010 H/O prostatectomy Onset Date: 12/12/08 Dr. Car Bartholomew -[facility]-suprapubic History of appendectomy Onset Date: ~1987 [facility] Hx of cataract surgery Onset Date: 04/09/14 03/19/14-left, 04/09/14-right Hx of cholecystectomy Onset Date: ~1982 [facility] Hx of colonoscopy Onset Date: 03/26/20 01/09/05 David-normal. 03/31/17 Dr. Brown - tubular adenoma x3, hyperplastic x4. Recheck 3 yrs. 03/26/20 Stephanie-tubular adenoma x5. Recheck 3-5 yrs. 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 Joseph - forearm Family History: Family History (Last Reviewed 12/23/20 @ 17:56 by Goldie Lester RN) Father , age 59 CVA (cerebral vascular accident) Mother , age 72 Liver disease Tuberculosis At young age Brother , age 88 Alzheimers disease Brother Alive and well Sister Alive and well Sister , age 90 -old age No problems noted. Social History: (Last Reviewed 12/23/20 @ 17:56 by Goldie Lester RN) Social History: Marital status: / lives independently: Yes household members: none number of children: 1 current occupational status: retired current occupation: retired Service: Yes Service comment: [employer] Tobacco: Smoking Status: Former smoker Alcohol: alcohol intake: current alcohol intake frequency: holiday/special occasion details: Current some day - rare Substance Use: substance use type: does not use Dietary Habits: caffeine: No Exercise: Physical activity type: walking Physical activity functional status: independent ambulation Personal Safety: victim of physical abuse: No victim of emotional abuse: No Progress - Vital Signs Vital Signs: Vital Signs 12/23/20 15:51 12/23/20 17:56 Temperature 36.8 C 36.8 C Pulse Rate 99 99 Respiratory Rate 19 19 Blood Pressure 148/92 H 148/92 H O2 Sat by Pulse Oximetry 98 98 - Progress/Reassessment Chief Complaint: General Assessment Departure Clinical Impression: Acute kidney injury, Dehydration - Departure Disposition: Still a patient Condition: Good Referrals: Chase Ann MD [Primary Care Provider] -
[2020-12-23 21:42] LABS: Urine Bilirubin Negative (NEGATIVE); Urine Blood 25 /ul (NEGATIVE); Urine Ketone Negative (NEGATIVE); Urine Nitrite Negative (NEGATIVE); Urine Protein 15 mg/dL (NEGATIVE); Urine Specific Gravity 1.015 SP.GR. (1.005-1.030); Urine Urobilinogen Normal (NORMAL); Urine pH 5.5 pH (5.0-7.0)
[2020-12-23 21:57] LABS: Urine Appearance Clear (CLEAR); Urine Bacteria TRACE; Urine Color Yellow; Urine Hyaline Cast TRACE /LPF; Urine RBC TRACE /hpf (0-5)
[2020-12-24] MEDS: NORMAL SALINE 1,000 ML IV PRN ×4 (00:32→22:54)
[2020-12-24 07:12] LABS: BUN/Creatinine Ratio 7.8 (9.0-21.6)
[2020-12-24 07:13] LABS: Bilirubin, Total 0.5 mg/dL (0.0-1.1); Ca. Corrected For Albumin 8.4 mg/dL (8.4-10.2); Calcium * 7.9 mg/dL (7.9-10.9); Carbon Dioxide 27.5 mmol/L (24-32.6); Total Protein 5.6 gm/dL (6.2-8.2)
[2020-12-24 07:25] LABS: Potassium 2.5 mmol/L (3.4-4.6)
[2020-12-24 07:56] LABS: Magnesium 1.6 mg/dL (1.2-2.8); Phosphorus 4.8 mg/dL (2.2-4.2)
[2020-12-24] MEDS: POTASSIUM CHLORIDE IN WATER 100 ML IV SCH ×4 (08:16→11:54)
[2020-12-24] MEDS ORDERED: MONTELUKAST SODIUM 10 MG TABLET PO PRN (08:39)
--- NOTE | 2020-12-24 08:39 | HP ---
Chief Complaint - Chief Complaint Date of Service: 12/24/20 Time of Service: 08:36 Chief Complaint: I thought Iwas going to History of Present Illness: Acosta Bunn is an 85-year-old white male with past medical history significant for hypertension, chronic atrial fibrillation, obstructive sleep apnea, GERD, chronic renal failure stage III, hyperlipidemia, history of thyroiditis, pulmonary hypertension, history of ischemic cardiomyopathy who was admitted early this morning for chief complaint of "I thought I was going to ". 1 week prior to admission patient started feeling ill, body malaise. He started having poor p.o. intake both solids and fluids. He would get nausea and dry heaves but no vomiting. Over the weekend he developed abdominal pain he thought he was going to and so he went to our emergency room. In the emergency room the patient was found to have acute kidney injury and to be dehydrated. He also had hypokalemia of 2.5. His UA showed possible UTI. His EKG showed sinus rhythm with first-degree AV block and premature ventricular contraction, right bundle branch block. His TSH was 0.020 with an FT4 of 1.64. He was admitted for further evalation and treatment. Medical History (Last Reviewed 12/23/20 @ 17:56 by Goldie Lester RN) COVID-19 vaccine series completed [employer] on 09/30/2020. HARLEY Trejo Arrhythmia Onset Date: Unknown Arthritis Onset Date: Unknown Atrial fibrillation Onset Date: Unknown BPH (benign prostatic hyperplasia) Onset Date: Unknown Erectile dysfunction Onset Date: Unknown GERD (gastroesophageal reflux disease) Onset Date: Unknown HTN (hypertension) Onset Date: Unknown Hiatal hernia Onset Date: Unknown Hyperlipidemia Onset Date: Unknown Hyperthyroidism Onset Date: Unknown KECIA (obstructive sleep apnea) Onset Date: 01/21/17 uses CPAP Calculus of kidney Onset Date: Unknown Cataract Onset Date: Unknown DVT (deep venous thrombosis) Onset Date: ~11/2009 Dizziness Onset Date: 02/19/14 Nonspecific Meningioma Onset Date: Unknown Palpitations Onset Date: Unknown Pulmonary embolism Onset Date: ~11/2009 Shoulder pain Onset Date: Unknown Rt Vertigo Onset Date: Unknown Central Surgical History: Surgical History (Last Reviewed 12/23/20 @ 17:56 by Goldie Lester RN) History of cardiac catheterization (Resolved) Onset Date: 04/08/17 x3 total S/P total knee arthroplasty Onset Date: ~11/11/20 Procedure: Left total knee arthroplasty. Dr. Navarrete H/O arthroscopy of left knee Onset Date: ~2010 H/O prostatectomy Onset Date: 12/12/08 Dr. Car Bartholomew -[facility]-suprapubic History of appendectomy Onset Date: ~1987 [facility] Hx of cataract surgery Onset Date: 04/09/14 03/19/14-left, 04/09/14-right Hx of cholecystectomy Onset Date: ~1982 [facility] Hx of colonoscopy Onset Date: 03/26/20 01/09/05 David-normal. 03/31/17 Dr. Brown - tubular adenoma x3, hyperplastic x4. Recheck 3 yrs. 03/26/20 Stephanie-tubular adenoma x5. Recheck 3-5 yrs. 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 [facility] Family History: Family History (Last Reviewed 12/23/20 @ 17:56 by Goldie Lester RN) Father , age 59 CVA (cerebral vascular accident) Mother , age 72 Liver disease Tuberculosis At young age Brother , age 88 Alzheimers disease Brother Alive and well Sister Alive and well Sister , age 90 -old age No problems noted. Social History: (Last Reviewed 12/23/20 @ 17:56 by Goldie Lester RN) Social History: Marital status: / lives independently: Yes household members: none number of children: 1 current occupational status: retired current occupation: retired Service: Yes Service comment: [employer] Tobacco: Smoking Status: Former smoker Alcohol: alcohol intake: current alcohol intake frequency: holiday/special occasion details: Current some day - rare Substance Use: substance use type: does not use Dietary Habits: caffeine: No Exercise: Physical activity type: walking Physical activity functional status: independent ambulation Personal Safety: victim of physical abuse: No victim of emotional abuse: No Review Of Systems (GEN) - Review of Systems Generalized/Overall Review: Present: Weakness, Fatigue. Absent: Chills, Fever EENTM: Absent: Blurred Vision Respiratory: Absent: Cough, Shortness of Breath, Orthopnea, Wheezing Cardiac: Absent: Chest Pain, Edema, Palpitations Abdominal: Present: Nausea, Abdominal Pain, Other - Loose stools. Absent: Vomiting Genitourinary: Absent: Urgency, Frequency Musculoskeletal: Absent: Joint Pain, Back Pain Neurological: Absent: Headache Skin: Absent: Lesions, Rash Endocrine: Present: Intolerance to Heat - Equivocal. Absent: Intolerance to Cold Misc: All systems neg except as marked Immunizations: IMMUNIZATION HX Immunizations Up to Date Yes History of Influenza Vaccine Yes Hx Pneumococcal Vaccination Yes Allergies/Adverse Reactions: Allergies Allergy/AdvReac Type Severity Reaction Status Date / Time Sulfa (Sulfonamide Allergy Mild RASH Verified 12/20/20 16:33 Antibiotics) ciprofloxacin [From Cipro] Allergy Unknown URINARY Verified 12/20/20 16:33 PROBLEMS cephalexin AdvReac Mild URINARY Verified 12/20/20 16:33 PROBLEMS Home Medications: HOME MEDICATIONS Multivitamins [Multivitamin Elda] 1 cap PO DAILY 06/12/12 [Last Taken 02/18/14 1 CAP] Hubbard-3/Dha/Epa/Fish Oil [Fish Oil 1,000 mg Softgel] 1 ea PO DAILY 06/12/12 [Last Taken 02/18/14 1 EACH] Cetirizine HCl [Zyrtec] 10 mg PO DAILY PRN 03/20/16 [Last Taken Unknown] Hydrochlorothiazide [Hydrodiuril] 25 mg PO DAILY 03/20/16 [Last Taken Unknown] Montelukast Sodium [Singulair] 10 mg PO DAILY PRN 12/03/18 [Last Taken Unknown] atorvastatin 20 mg tablet 20 mg PO DAILY 03/04/20 [Last Taken Unknown] warfarin 2 mg tablet 3 mg PO DAILY #90 tab 11/01/20 [Last Taken 11/05/20 18:00] Ascorbic Acid [Vitamin C] 1 g PO DAILY PRN 11/11/20 [Last Taken Unknown] ferrous sulfate 325 mg (65 mg iron) tablet 325 mg PO 12/18/20 [Last Taken Unknown] atenolol 50 mg tablet 50 mg PO DAILY #90 tab 12/20/20 [Last Taken Unknown] omeprazole 20 mg capsule,delayed release 40 mg PO DAILY #60 cap 12/20/20 [Last Taken Unknown] potassium chloride 10 mEq tablet,extended release(part/cryst) 20 meq PO DAILY tab 12/20/20 [Last Taken Unknown] Diltiazem HCl 360 mg PO DAILY 12/24/20 [Last Taken Unknown] Exam - Exam Vital Signs: Vital Signs - Last Taken Temp 37.0 C 12/24/20 06:32 Pulse 70 12/24/20 06:32 Resp 24 H 12/24/20 06:32 BP 141/80 12/24/20 06:32 Pulse Ox 98 12/24/20 06:32 Constitutional: Present: Alert, Oriented x3, Cooperative, Elderly ENT Exam: Present: hearing grossly normal Eye Exam: bilateral eye: normal inspection, PERRL, EOMI Neck: Present: supple. Absent: lymphadenopathy (R), lymphadenopathy (L) Respiratory: Present: normal breath sounds, No rales Cardiovascular/Chest: Present: regular rate, rhythm, no JVD, no murmur Abdomen: Present: Normal bowel sounds, soft, tender - Left upper quadrant, distended - Mildly distended Extremity: Present: no calf tenderness. Absent: lower extremity edema Diagnostic Studies: Abnormal Lab Results 12/23/20 12/23/20 12/23/20 Range/Units 18:35 18:35 18:35 Hgb 12.7 L (13.5-18.0) gm/dL Hct 39.5 L (42.0-52.0) % Lymphocytes % 15.1 L (20-51) % Monocytes % 10.1 H (0.0-9) % Eosinophils % 5.3 H (0.0-3.0) % Lymphocytes # 1.24 L (1.5-3.5) k/mm3 ESR 18 H (0-10) mm/hr Sodium (132-142) mmol/L Plasma Sodium (130-142) mmol/L Potassium 2.9 L (3.4-4.6) mmol/L Chloride (97-106) mmol/L Anion Gap 16.0 H (6.8-13.8) mmol/L BUN 33 H (6-23) mg/dL Creatinine 4.05 H D (0.4-1.4) mg/dL Est GFR (Non-Af Amer) 15 L D (60-130) mL/min BUN/Creatinine Ratio 8.1 L (9.0-21.6) Random Glucose 120 H (70-110) mg/dL Phosphorus (2.2-4.2) mg/dL Total Protein (6.2-8.2) gm/dL Albumin (3.4-5.0) gm/dl TSH 0.020 L (0.358-3.74) uIU/mL Urine Protein (NEGATIVE) mg/dL Urine Blood (NEGATIVE) /ul Ur Leukocyte Esterase (NEGATIVE) /ul Urine WBC (0-5) /hpf 12/23/20 12/24/20 12/24/20 Range/Units 21:30 06:18 06:18 Hgb (13.5-18.0) gm/dL Hct (42.0-52.0) % Lymphocytes % (20-51) % Monocytes % (0.0-9) % Eosinophils % (0.0-3.0) % Lymphocytes # (1.5-3.5) k/mm3 ESR (0-10) mm/hr Sodium 144 H (132-142) mmol/L Plasma Sodium 144 H (130-142) mmol/L Potassium 2.5 L (3.4-4.6) mmol/L Chloride 107 H (97-106) mmol/L Anion Gap (6.8-13.8) mmol/L BUN 30 H (6-23) mg/dL Creatinine 3.86 H (0.4-1.4) mg/dL Est GFR (Non-Af Amer) 16 L (60-130) mL/min BUN/Creatinine Ratio 7.8 L (9.0-21.6) Random Glucose (70-110) mg/dL Phosphorus 4.8 H (2.2-4.2) mg/dL Total Protein 5.6 L (6.2-8.2) gm/dL Albumin 3.0 L (3.4-5.0) gm/dl TSH (0.358-3.74) uIU/mL Urine Protein 15 H (NEGATIVE) mg/dL Urine Blood 25 H (NEGATIVE) /ul Ur Leukocyte Esterase 25 H (NEGATIVE) /ul Urine WBC 5-10 H (0-5) /hpf Laboratory Results WBC 8.2 K/mm3 (4.0-10.5) 12/23/20 18:35 RBC 4.71 M/mm3 (4.7-6.0) 12/23/20 18:35 Hgb 12.7 gm/dL (13.5-18.0) L 12/23/20 18:35 Hct 39.5 % (42.0-52.0) L 12/23/20 18:35 MCV 83.9 fl (78-100) 12/23/20 18:35 MCH 27.0 pg (27-31) 12/23/20 18:35 MCHC 32.2 g/dl (32-36) 12/23/20 18:35 RDW 13.3 % (11.5-14.0) 12/23/20 18:35 Plt Count 416 K/mm3 (150-450) 12/23/20 18:35 MPV 8.8 fl (8-11.3) 12/23/20 18:35 Immature Gran % (Auto) 0.20 % (0.001-0.429) 12/23/20 18: Immature Gran # (Auto) 0.02 K/mm3 (0.000-0.0310) 12/23/20 18:35 Neutrophils % 68.3 % (42-75.0) 12/23/20 18:35 Lymphocytes % 15.1 % (20-51) L 12/23/20 18:35 Monocytes % 10.1 % (0.0-9) H 12/23/20 18:35 Eosinophils % 5.3 % (0.0-3.0) H 12/23/20 18:35 Basophils % 1.0 % (0.0-1.0) 12/23/20 18:35 Nucleated RBC % 0.0 k/mm3 (0-1) 12/23/20 18:35 Neutrophils # 5.6 K/mm3 (1.3-6.0) 12/23/20 18:35 Lymphocytes # 1.24 k/mm3 (1.5-3.5) L 12/23/20 18:35 Monocytes # 0.8 k/mm3 (0.0-1.0) 12/23/20 18: Eosinophils # 0.4 k/mm3 (0.0-0.7) 12/23/20 18:35 Absolute Basophils 0.1 k/mm3 (0.0-0.1) 12/23/20 18:35 ESR 18 mm/hr (0-10) H 12/23/20 18:35 Sodium 144 mmol/L (132-142) H 12/24/20 06:18 Plasma Sodium 144 mmol/L (130-142) H 12/24/20 06:18 Potassium 2.5 mmol/L (3.4-4.6) L 12/24/20 06:18 Chloride 107 mmol/L (97-106) H 12/24/20 06:18 Carbon Dioxide 27.5 mmol/L (24-32.6) 12/24/20 06:18 Anion Gap 12.0 mmol/L (6.8-13.8) 12/24/20 06:18 BUN 30 mg/dL (6-23) H 12/24/20 06:18 Creatinine 3.86 mg/dL (0.4-1.4) H 12/24/20 06:18 Est GFR (Non-Af Amer) 16 mL/min (60-130) L 12/24/20 06:18 BUN/Creatinine Ratio 7.8 (9.0-21.6) L 12/24/20 06:18 Random Glucose 101 mg/dL (70-110) 12/24/20 06:18 Calcium 7.9 mg/dL (7.9-10.9) 12/24/20 06:18 Calcium Adj for Albumin 8.4 mg/dL (8.4-10.2) 12/24/20 06:18 Phosphorus 4.8 mg/dL (2.2-4.2) H 12/24/20 06:18 Magnesium 1.6 mg/dL (1.2-2.8) 12/24/20 06:18 Total Bilirubin 0.5 mg/dL (0.0-1.1) 12/24/20 06:18 AST 15 U/L (0-48) 12/24/20 06:18 ALT 21 U/L (19-67) 12/24/20 06:18 Alkaline Phosphatase 60 U/L (50-170) 12/24/20 06:18 Troponin I Less than 0.017 ng/mL (0.00-0.10) 12/23/20 18:35 Total Protein 5.6 gm/dL (6.2-8.2) L 12/24/20 06:18 Albumin 3.0 gm/dl (3.4-5.0) L 12/24/20 06:18 TSH 0.020 uIU/mL (0.358-3.74) L 12/23/20 18:35 Urine Color Yellow 12/23/20 21:30 Urine Appearance Clear (CLEAR) 12/23/20 21:30 Urine pH 5.5 pH (5.0-7.0) 12/23/20 21:30 Ur Specific [place] 1.015 SP.GR. (1.005-1.030) 12/23/20 21:30 Urine Protein 15 mg/dL (NEGATIVE) H 12/23/20 21:30 Urine Glucose (UA) Negative mg/dL (NEGATIVE) 12/23/20 21:30 Urine Ketones Negative mg/dL (NEGATIVE) 12/23/20 21:30 Urine Blood 25 /ul (NEGATIVE) H 12/23/20 21:30 Urine Nitrate Negative (NEGATIVE) 12/23/20 21:30 Urine Bilirubin Negative mg/dl (NEGATIVE) 12/23/20 21:30 Urine Urobilinogen Normal EU/dl (NORMAL) 12/23/20 21:30 Ur Leukocyte Esterase 25 /ul (NEGATIVE) H 12/23/20 21:30 Urine RBC Trace /hpf (0-5) 12/23/20 21:30 Urine WBC 5-10 /hpf (0-5) H 12/23/20 21:30 Ur Epithelial Cells 0-5 /hpf (0-5) 12/23/20 21:30 Urine Bacteria Trace (NONE) 12/23/20 21:30 Hyaline Casts Trace /LPF (NONE) 12/23/20 21:30 Urine Culture Comments Culture to follow 12/23/20 21:30 SARS-CoV-2 (PCR) Not detected (NotDetected) 12/23/20 20:37 Assessment/Plan - Narrative Narrative: Acosta was admitted for acute kidney injury likely prerenal and dehydration due to poor p.o intake from abdominal pain. He also had hypokalemia. We will continue with his IV fluids and potassium replacement. We will get a renal ultrasound and abdominal flat and upright plate. We may need to do a CT scan of his abdomen and pelvis if there is evidence of abnormality.. He does also have a low TSH level with a history of subacute thyroiditis. Last week we tried increasing his atenolol to block the peripheral effects of his hyperthyroid state in case there is is a recurrence of his subacute thyroiditis. We may need to do more work-up again to differentiate it again from Graves' disease in which case he may need Methimazol or PTU.. I will try to get in touch with endocrinology in [facility]. His UA also showed possible UTI. - Assessment/Plan (1) Acute kidney injury Problem: Acute (2) Dehydration Problem: Acute (3) UTI (urinary tract infection) Problem: Acute Qualifiers: Urinary tract infection type: acute cystitis Hematuria presence: without hematuria Qualified Code(s): N30.00 - Acute cystitis without hematuria (4) Low TSH level Problem: Acute (5) History of thyroiditis Problem: Chronic (6) A-fib Problem: Chronic Qualifiers: (7) Hypertension Problem: Chronic Qualifiers: (8) GERD (gastroesophageal reflux disease) Problem: Chronic (9) KECIA treated with BiPAP Problem: Chronic (10) Hypokalemia Problem: Acute (11) Anemia Problem: Chronic Qualifiers:
[2020-12-24] MEDS ORDERED: ONDANSETRON HCL/PF 2 MG/ML VIAL IV PRN (08:43)
[2020-12-24] MEDS: ATENOLOL 50 MG TABLET PO SCH (08:59)
[2020-12-24] MEDS: POTASSIUM CHLORIDE 20 MEQ TABLET.SA PO SCH (08:59)
[2020-12-24] MEDS ORDERED: DILTIAZEM HCL 180 MG CAP.SR.24H PO SCH (09:00)
[2020-12-24] MEDS: PANTOPRAZOLE SODIUM 40 MG in NORMAL SALINE 100 ML IV SCH (09:21)
[2020-12-24] MEDS: MAGNESIUM OXIDE 400 MG TABLET PO SCH ×3 (09:23→17:18)
[2020-12-24 16:21] LABS: INR Greater than 10.00 INR (0.92-1.08)
[2020-12-24] MEDS ORDERED: PHYTONADIONE (VIT K1) 5 MG TABLET PO ONE (16:29)
[2020-12-24 17:32] LABS: Urine Bilirubin Negative (NEGATIVE); Urine Ketone Negative (NEGATIVE); Urine Nitrite Negative (NEGATIVE); Urine Protein Negative (NEGATIVE); Urine Urobilinogen Normal (NORMAL)
[2020-12-24 17:49] LABS: Urine Appearance Clear (CLEAR); Urine Blood 5 /ul (NEGATIVE); Urine Color Yellow; Urine RBC TRACE /hpf (0-5); Urine WBC 0-5 /hpf (0-5)
[2020-12-24 17:50] LABS: Urine Bacteria TRACE; Urine Hyaline Cast 0-5 /LPF
[2020-12-25] MEDS: NORMAL SALINE 1,000 ML IV PRN (06:28)
[2020-12-25 07:09] LABS: Hematocrit 32.3 % (42.0-52.0); Hemoglobin 10.4 gm/dL (13.5-18.0); Mean Cell Volume 84.6 fl (78-100); Mean Corpuscular Hemoglobin 27.2 pg (27-31); Mean Corpuscular Hgb Conc 32.2 g/dl (32-36); Mean Platelet Volume 9.1 fl (8-11.3); Neutrophil # 2.7 K/mm3 (1.3-6.0); Neutrophil % 56.9 % (42-75.0); Platelet Count 320 K/mm3 (150-450); Red Blood Count 3.82 M/mm3 (4.7-6.0); Red Cell Distribution Width 13.4 % (11.5-14.0); White Blood Count 4.7 K/mm3 (4.0-10.5)
[2020-12-25 07:11] LABS: INR 2.84 INR (0.92-1.08); Prothrombin Time (Patient) 28.1 Seconds (9.1-10.7)
[2020-12-25 07:12] LABS: Anion Gap 12.4 mmol/L (6.8-13.8); BUN/Creatinine Ratio 7.8 (9.0-21.6); Calcium * 7.5 mg/dL (7.9-10.9); Carbon Dioxide 25.8 mmol/L (24-32.6); Estimated Creat Clear 16.3; Potassium 3.2 mmol/L (3.4-4.6)
[2020-12-25] MEDS ORDERED: POTASSIUM CHLORIDE 10 MEQ TABLET.SA PO ONE (08:39)
[2020-12-25 08:49] LABS: Amylase * 62 U/L (25-115); Lipase 175 U/L (73-393)
--- NOTE | 2020-12-25 09:34 | PN ---
Subjective - Date and Time Seen Date: 12/25/20 Time: 09:23 Subjective Narrative: Patient awake alert oriented x3. Still complaining of abdominal pain upper abdomen. A febrile. Creatinine down to 3.3. Potassium up to 3.2 Objective - Review of Systems Generalized/Overall Review: Reports: Weakness. Denies: Chills, Fever EENTM: Denies: Blurred Vision Respiratory: Denies: Cough, Shortness of Breath, Orthopnea Cardiac: Denies: Chest Pain, Edema, Palpitations Abdominal: Reports: Nausea, Abdominal Pain. Denies: Vomiting, Hematemesis Genitourinary Symptoms: Denies: Urgency, Frequency Musculoskeletal Complaints: Reports: Joint Pain Neurological: Denies: Headache Misc: All systems neg except as marked - Vitals Vitals: Last Vital Signs Temp 36.4 C 12/25/20 06:45 Pulse 70 12/25/20 06:45 Resp 16 12/25/20 06:45 BP 121/68 12/25/20 06:45 Pulse Ox 100 12/25/20 06:45 - Abnormal Lab Findings Abnormal Lab Findings: Abnormal Lab Results 12/24/20 12/24/20 12/25/20 Range/Units 15:10 16:50 06:55 RBC 3.82 L (4.7-6.0) M/mm3 Hgb 10.4 L (13.5-18.0) gm/dL Hct 32.3 L (42.0-52.0) % Monocytes % 10.9 H (0.0-9) % Eosinophils % 8.7 H (0.0-3.0) % Basophils % 1.3 H (0.0-1.0) % Lymphocytes # 1.03 L (1.5-3.5) k/mm3 PT Greater than 100.0 H (9.1-10.7) Seconds INR (Anticoag Therapy) Greater than 10.00 H* (0.92-1.08) INR Sodium (132-142) mmol/L Plasma Sodium (130-142) mmol/L Potassium (3.4-4.6) mmol/L Chloride (97-106) mmol/L BUN (6-23) mg/dL Creatinine (0.4-1.4) mg/dL Est GFR (Non-Af Amer) (60-130) mL/min BUN/Creatinine Ratio (9.0-21.6) Calcium (7.9-10.9) mg/dL Urine Blood 5 H (NEGATIVE) /ul Hyaline Casts 0-5 H (NONE) /LPF 12/25/20 12/25/20 Range/Units 06:55 06:55 RBC (4.7-6.0) M/mm3 Hgb (13.5-18.0) gm/dL Hct (42.0-52.0) % Monocytes % (0.0-9) % Eosinophils % (0.0-3.0) % Basophils % (0.0-1.0) % Lymphocytes # (1.5-3.5) k/mm3 PT 28.1 H (9.1-10.7) Seconds INR (Anticoag Therapy) 2.84 H (0.92-1.08) INR Sodium 145 H (132-142) mmol/L Plasma Sodium 145 H (130-142) mmol/L Potassium 3.2 L D (3.4-4.6) mmol/L Chloride 110 H (97-106) mmol/L BUN 26 H (6-23) mg/dL Creatinine 3.35 H D (0.4-1.4) mg/dL Est GFR (Non-Af Amer) 19 L (60-130) mL/min BUN/Creatinine Ratio 7.8 L (9.0-21.6) Calcium 7.5 L (7.9-10.9) mg/dL Urine Blood (NEGATIVE) /ul Hyaline Casts (NONE) /LPF - Exam Constitutional: Present: Alert, Oriented x3, Cooperative, Elderly ENT Exam: Present: hard of hearing Neck: Present: supple. Absent: lymphadenopathy (R), lymphadenopathy (L) Respiratory: Present: normal breath sounds, No rales, No wheezing Cardiovascular/Chest: Present: regular rate, rhythm, no JVD, no murmur Abdomen: Present: Normal bowel sounds, soft, nontender, distended - Slightly distended Extremity: Present: no calf tenderness. Absent: lower extremity edema Assessment/Plan Plan Narrative: Glen was admitted for generalized weakness, acute kidney injury and abdominal pain. He is hospital day #2. Renal ultrasound showed no hydronephrosis or obstruction, positive bilateral renal cysts. His creatinine i s down to 3.2 with IV fluids. He denies any intestinal angina. He says that his appetite is down because when he starts eating he would get nauseous. Physical therapy is working on him. His heart rate overnight was in the 40s to 50s and this morning was 70. We had increase his atenolol to 50 mg p.o. daily to block peripheral effects of his hyperthyroid state. We had sent out other thyroid test and when they come back we will try to get in touch with endocrinology at [facility]. We will decrease his diltiazem to 180 mg from 360 mg p.o. daily. We will add amylase/lipase to his blood work drawn this morning. He is on IV Protonix. We will give 40 M EQ of Klor-Con p.o. x1 today for his potassium of 3.2. We will continue IV fluids. His INR was greater than 10 yesterday and 5 mg of vitamin K was given p.o. it is down to 2.8 today. We will restart him back on his Coumadin and pharmacy to follow-up INR levels and adjust dosages. Addendum: Since his UCS came out NG today we will d/c his IV rocephin in case this is AIN from Amoxicillin which was given to him by [facility] for strep throat. He was also told by [facility] to take ibuprofen or tylenol PRN for pain/fever. If kidney function does not improve significantly consider starting either IV solumedrol or oral prednisone. - Problems/Diagnosis (1) Nausea Problem: Acute Narrative: will get amylase/lipase. r/o JOAQUIN induced. (2) Acute kidney injury Problem: Acute Narrative: prerenal (dehydration) vs renal (AIN) . Postrenal ruled out. (3) Dehydration Problem: Acute (4) UTI (urinary tract infection) Problem: Acute Qualifiers: Urinary tract infection type: acute cystitis Hematuria presence: without hematuria Qualified Code(s): N30.00 - Acute cystitis without hematuria Narrative: NG on UCS. will d/.c IV rocephin (5) Low TSH level Problem: Chronic (6) History of thyroiditis Problem: Chronic (7) A-fib Problem: Chronic Qualifiers: (8) Hypertension Problem: Chronic Qualifiers: Hypertension type: essential hypertension Qualified Code(s): I10 - Essential (primary) hypertension (9) GERD (gastroesophageal reflux disease) Problem: Chronic (10) KECIA treated with BiPAP Problem: Chronic (11) Hypokalemia Problem: Acute (12) Anemia Problem: Chronic Qualifiers: Anemia type: iron deficiency Iron deficiency anemia type: unspecified iron deficiency Qualified Code(s): D50.9 - Iron deficiency anemia, unspecified
[2020-12-25] MEDS ORDERED: POTASSIUM CHLORIDE 10 MEQ TABLET.SA ONE (10:17)
[2020-12-25] MEDS: DILTIAZEM HCL 180 MG CAP.SR.24H PO SCH (10:19)
[2020-12-25] MEDS: PANTOPRAZOLE SODIUM 40 MG in NORMAL SALINE 100 ML IV SCH (10:21)
[2020-12-25] MEDS: ATENOLOL 50 MG TABLET PO SCH (10:21)
[2020-12-25] MEDS: MAGNESIUM OXIDE 400 MG TABLET PO SCH ×3 (10:21→17:53)
[2020-12-25] MEDS: POTASSIUM CHLORIDE 10 MEQ in 0.5 NORMAL SALINE 1,000 ML IV SCH ×2 (13:11→21:54)
[2020-12-25] MEDS: DENTAL ADHESIVE 39 APPL TUBE TP SCH (13:11)
[2020-12-25] MEDS: POTASSIUM CHLORIDE 20 MEQ TABLET.SA PO SCH (14:40)
[2020-12-25] MEDS: WARFARIN SODIUM 3 MG TABLET PO SCH (17:53)
[2020-12-26] MEDS: POTASSIUM CHLORIDE 10 MEQ in 0.5 NORMAL SALINE 1,000 ML IV SCH ×2 (06:22→14:51)
[2020-12-26 06:46] LABS: Anion Gap 14.9 mmol/L (6.8-13.8); BUN/Creatinine Ratio 7.4 (9.0-21.6); Carbon Dioxide 22.7 mmol/L (24-32.6); Estimated Creat Clear 20.1; Potassium 3.6 mmol/L (3.4-4.6)
[2020-12-26 07:55] LABS: Prothrombin Time (Patient) 13.8 Seconds (9.1-10.7)
[2020-12-26 07:56] LABS: INR 1.35 INR (0.92-1.08)
--- NOTE | 2020-12-26 09:08 | PN ---
Subjective - Date and Time Seen Date: 12/26/20 - n Time: 08:49 Subjective Narrative: Patient working with physical therapy. He feels better today. Afebrile. Creatinine down to 2.7. His baseline is around 1.5-1.8. Objective - Review of Systems Generalized/Overall Review: Reports: Weakness. Denies: Chills, Fever EENTM: Denies: Blurred Vision Respiratory: Denies: Cough, Shortness of Breath, Orthopnea Cardiac: Denies: Chest Pain, Edema, Palpitations Abdominal: Reports: Nausea - improved, Abdominal Pain - improved. Denies: Vomiting Genitourinary Symptoms: Denies: Urgency, Frequency Musculoskeletal Complaints: Reports: Joint Pain Neurological: Denies: Headache Skin: Denies: Lesions, Rash Misc: All systems neg except as marked - Vitals Vitals: Last Vital Signs Temp 36.6 C 12/26/20 06:32 Pulse 63 12/26/20 06:32 Resp 18 12/26/20 06:32 BP 148/75 12/26/20 06:32 Pulse Ox 100 12/26/20 06:32 - Abnormal Lab Findings Abnormal Lab Findings: Abnormal Lab Results 12/26/20 12/26/20 Range/Units 06:30 06:31 PT 13.8 H (9.1-10.7) Seconds INR (Anticoag Therapy) 1.35 H (0.92-1.08) INR Sodium 144 H (132-142) mmol/L Plasma Sodium 144 H (130-142) mmol/L Chloride 110 H (97-106) mmol/L Carbon Dioxide 22.7 L (24-32.6) mmol/L Anion Gap 14.9 H (6.8-13.8) mmol/L Creatinine 2.71 H D (0.4-1.4) mg/dL Est GFR (Non-Af Amer) 24 L D (60-130) mL/min BUN/Creatinine Ratio 7.4 L (9.0-21.6) - Exam Constitutional: Present: Alert, Oriented x3, Cooperative, Elderly ENT Exam: Present: hearing grossly normal Neck: Present: supple. Absent: lymphadenopathy (R), lymphadenopathy (L) Respiratory: Present: normal breath sounds, No rales, No wheezing Cardiovascular/Chest: Present: regular rate, rhythm, no JVD, no murmur Abdomen: Present: Normal bowel sounds, soft, nontender, nondistended Extremity: Present: no calf tenderness. Absent: lower extremity edema Assessment/Plan Plan Narrative: Acosta was admitted for acute kidney injury. Patient had strep throat 2-2 and 1/2 weeks ago that was treated with amoxicillin for 10 days. On on 12/20/2020 he was seen again in the walk-in clinic for postnasal drip and was told to take Tylenol or ibuprofen and Coricidin. He was finishing his 10 mcclure antibiotic that day. It was also noted that he was having diarrhea. His acute kidney failure is likely multifactorial- prerenal from dehydration and renal from likely acute interstitial nephritis. He is 7 days post finishing his amoxicillin and I stopped his Rocephin since his urinalysis which showed UTI showed no growth. With his creatinine going down to 2.7 (but still above his baseline) his nausea is also better. His nausea which led him to reduce p.o. intake of solids and liquids ( also contributing to prerenal JOAQUIN) is likely a manifestation of his acute kidney injury as well. This was explained all to the patient and we discussed about the possibility of starting him on Solu-Medrol IV or prednisone for possible AIN and talked about risk and benefits. He is willing to try it for a short period of time. He has been having episodes of bradycardia and we had gone down on his Diltiazem from 360 mg to 180 mg. Will go down to 90 mg PO Q daily. Addendum : pharmacy called that we dont have 90 mg only 120 mg . Will see how he does tonight. If still with episodes of bradycardia will likely stop his diltiazem entirely and just keep him on his atenolol. Possible discharge in the morning. - Problems/Diagnosis (1) Nausea Problem: Acute (2) Acute kidney injury Problem: Acute (3) Dehydration Problem: Acute (4) UTI (urinary tract infection) Problem: Acute Qualifiers: Urinary tract infection type: acute cystitis Hematuria presence: without hematuria Qualified Code(s): N30.00 - Acute cystitis without hematuria (5) Low TSH level Problem: Chronic (6) History of thyroiditis Problem: Chronic (7) A-fib Problem: Chronic Qualifiers: (8) Hypertension Problem: Chronic Qualifiers: Hypertension type: essential hypertension Qualified Code(s): I10 - Essential (primary) hypertension (9) GERD (gastroesophageal reflux disease) Problem: Chronic (10) KECIA treated with BiPAP Problem: Chronic (11) Hypokalemia Problem: Acute (12) Anemia Problem: Chronic Qualifiers: Anemia type: iron deficiency Iron deficiency anemia type: unspecified iron deficiency Qualified Code(s): D50.9 - Iron deficiency anemia, unspecified
[2020-12-26] MEDS: PANTOPRAZOLE SODIUM 40 MG in NORMAL SALINE 100 ML IV SCH (09:41)
[2020-12-26] MEDS: POTASSIUM CHLORIDE 20 MEQ TABLET.SA PO SCH (09:42)
[2020-12-26] MEDS: MAGNESIUM OXIDE 400 MG TABLET PO SCH ×3 (09:42→17:41)
[2020-12-26] MEDS: predniSONE 20 MG TABLET PO SCH (09:42)
[2020-12-26] MEDS: LORATADINE 10 MG TABLET PO PRN (09:43)
[2020-12-26] MEDS: ATENOLOL 50 MG TABLET PO SCH (09:43)
[2020-12-26] MEDS: DILTIAZEM HCL 180 MG CAP.SR.24H PO SCH (09:43)
[2020-12-26] MEDS: DENTAL ADHESIVE 39 APPL TUBE TP SCH (09:43)
[2020-12-26] MEDS: WARFARIN SODIUM 3 MG TABLET PO SCH (17:41)
[2020-12-27] MEDS: POTASSIUM CHLORIDE 10 MEQ in 0.5 NORMAL SALINE 1,000 ML IV SCH ×3 (00:33→17:53)
[2020-12-27 06:22] LABS: Hematocrit 32.9 % (42.0-52.0); Hemoglobin 10.6 gm/dL (13.5-18.0); Mean Cell Volume 84.1 fl (78-100); Mean Corpuscular Hemoglobin 27.1 pg (27-31); Mean Corpuscular Hgb Conc 32.2 g/dl (32-36); Mean Platelet Volume 8.6 fl (8-11.3); Neutrophil # 5.7 K/mm3 (1.3-6.0); Neutrophil % 79.6 % (42-75.0); Platelet Count 282 K/mm3 (150-450); Red Blood Count 3.91 M/mm3 (4.7-6.0); Red Cell Distribution Width 13.3 % (11.5-14.0); White Blood Count 7.2 K/mm3 (4.0-10.5)
[2020-12-27 06:29] LABS: Anion Gap 14.3 mmol/L (6.8-13.8); BUN/Creatinine Ratio 9.8 (9.0-21.6); Calcium * 7.7 mg/dL (7.9-10.9); Carbon Dioxide 24.5 mmol/L (24-32.6); Estimated Creat Clear 26.6; Potassium 3.8 mmol/L (3.4-4.6)
[2020-12-27 06:31] LABS: INR 1.43 INR (0.92-1.08); Prothrombin Time (Patient) 14.6 Seconds (9.1-10.7)
[2020-12-27] MEDS ORDERED: DILTIAZEM HCL 120 MG CAP.SR.24H PO SCH (09:00)
[2020-12-27] MEDS: POTASSIUM CHLORIDE 20 MEQ TABLET.SA PO SCH (09:10)
[2020-12-27] MEDS: MAGNESIUM OXIDE 400 MG TABLET PO SCH ×3 (09:10→17:50)
[2020-12-27] MEDS: predniSONE 20 MG TABLET PO SCH (09:11)
[2020-12-27] MEDS: PANTOPRAZOLE SODIUM 40 MG in NORMAL SALINE 100 ML IV SCH (09:12)
[2020-12-27] MEDS: ATENOLOL 25 MG TABLET PO SCH (09:12)
[2020-12-27] MEDS: DENTAL ADHESIVE 39 APPL TUBE TP SCH (09:13)
--- NOTE | 2020-12-27 09:48 | DS ---
(1) Nausea Problem: Resolved (2) Acute kidney injury Problem: Acute (3) Dehydration Problem: Resolved (4) UTI (urinary tract infection) Problem: Ruled-out Qualifiers: Urinary tract infection type: acute cystitis Hematuria presence: without hematuria Qualified Code(s): N30.00 - Acute cystitis without hematuria (5) Low TSH level Problem: Chronic (6) History of thyroiditis Problem: Chronic (7) A-fib Problem: Chronic Qualifiers: Atrial fibrillation type: paroxysmal Qualified Code(s): I48.0 - Paroxysmal atrial fibrillation (8) Hypertension Problem: Chronic Qualifiers: Hypertension type: essential hypertension Qualified Code(s): I10 - Essential (primary) hypertension (9) GERD (gastroesophageal reflux disease) Problem: Chronic (10) KECIA treated with BiPAP Problem: Chronic (11) Hypokalemia Problem: Resolved (12) Anemia Problem: Chronic Qualifiers: Anemia type: iron deficiency Iron deficiency anemia type: unspecified iron deficiency Qualified Code(s): D50.9 - Iron deficiency anemia, unspecified Date of Discharge:: 12/27/20 Hospital Course: Acosta Bunn is an 85-year-old white male with past medical history significant for hypertension, chronic atrial fibrillation, obstructive sleep apnea, GERD, chronic renal failure stage III, hyperlipidemia, history of thyroiditis, pulmonary hypertension, history of ischemic cardiomyopathy who was admitted early this morning for chief complaint of "I thought I was going to ". 1 week prior to admission patient started feeling ill, body malaise. He started having poor p.o. intake both solids and fluids. He would get nausea and dry heaves but no vomiting. Over the weekend he developed abdominal pain he thought he was going to and so he went to our emergency room. In the emergency room the patient was found to have acute kidney injury and to be dehydrated. He also had hypokalemia of 2.5. His UA showed possible UTI. His EKG showed sinus rhythm with first-degree AV block and premature ventricular contraction, right bundle branch block. His TSH was 0.020 with an FT4 of 1.64. He was admitted for further evalation and treatment. We did a renal ultrasound and ruled out postrenal causes of his acute kidney injury. We treated this with IV fluids for likely prerenal cause and his creatinine was very slow to improve. On further review the patient had 10 days of amoxicillin for strep throat. Although patient did not have the classic triad of fever, rash and arthralgia the temporal relationship of his kidney failure and his antibiotic intake acute interstitial nephritis was entertained. We started him on oral prednisone empirically. His creatinine today is 2.07. He had been having bradycardia and we have stopped his diltiazem and went down on his atenolol. This morning his heart rate has been in the 60s to 70s. Patient will be discharged today and follow-up with me on Wednesday. ADDENDUM: Patient was no comfortable going home today due to his bradycardia in the 30's-40's at night. I told his bradycardia was likely due to his combined BBB and CCB which is staying longer in his body due to his decreased kidney clearnce. Will sign out to independent beauty consultant physician. This d/c summary will serve as my Progress Notes for today. Procedures Performed: none Results and Findings: Lab Pending Results 12/23/20 18:35: Sodium 141, Plasma Sodium 141, Potassium 2.9 L, Chloride 102, Carbon Dioxide 25.9, Anion Gap 16.0 H, BUN 33 H, Creatinine 4.05 H D, Est GFR (Non-Af Amer) 15 L D, BUN/Creatinine Ratio 8.1 L, Random Glucose 120 H, Calcium 8.6, Calcium Adj for Albumin 8.4, Total Bilirubin 0.7, AST 19, ALT 25, Alkaline Phosphatase 78, Troponin I Less than 0.017, Total Protein 6.9, Albumin 3.8, TSH 0.020 L 12/23/20 18:35: WBC 8.2, RBC 4.71, Hgb 12.7 L, Hct 39.5 L, MCV 83.9, MCH 27.0, MCHC 32.2, RDW 13.3, Plt Count 416, MPV 8.8, Immature Gran % (Auto) 0.20, Immature Gran # (Auto) 0.02, Neutrophils % 68.3, Lymphocytes % 15.1 L, Monocytes % 10.1 H, Eosinophils % 5.3 H, Basophils % 1.0, Nucleated RBC % 0.0, Neutrophils # 5.6, Lymphocytes # 1.24 L, Monocytes # 0.8, Eosinophils # 0.4, Absolute Basophils 0.1 12/23/20 18:35: ESR 18 H 12/23/20 20:37: SARS-CoV-2 (PCR) Not detected 12/23/20 21:30: Urine Color Yellow, Urine Appearance Clear, Urine pH 5.5, Ur Specific [place] 1.015, Urine Protein 15 H, Urine Glucose (UA) Negative, Urine Ketones Negative, Urine Blood 25 H, Urine Nitrate Negative, Urine Bilirubin Negative, Urine Urobilinogen Normal, Ur Leukocyte Esterase 25 H, Urine RBC Trace, Urine WBC 5-10 H, Ur Epithelial Cells 0-5, Urine Bacteria Trace, Hyaline Casts Trace, Urine Culture Comments Culture to follow 12/24/20 06:18: Sodium 144 H, Plasma Sodium 144 H, Potassium 2.5 L, Chloride 107 H, Carbon Dioxide 27.5, Anion Gap 12.0, BUN 30 H, Creatinine 3.86 H, Est GFR (Non-Af Amer) 16 L, BUN/Creatinine Ratio 7.8 L, Random Glucose 101, Calcium 7.9, Calcium Adj for Albumin 8.4, Total Bilirubin 0.5, AST 15, ALT 21, Alkaline Phosphatase 60, Total Protein 5.6 L, Albumin 3.0 L 12/24/20 06:18: Phosphorus 4.8 H, Magnesium 1.6 12/24/20 15:10: PT Greater than 100.0 H, INR (Anticoag Therapy) Greater than 10.00 H* 12/24/20 16:50: Urine Color Yellow, Urine Appearance Clear, Urine pH 5.0, Ur Specific [place] 1.010, Urine Protein Negative, Urine Glucose (UA) Negative, Urine Ketones Negative, Urine Blood 5 H, Urine Nitrate Negative, Urine Bilirubin Negative, Urine Urobilinogen Normal, Ur Leukocyte Esterase Negative, Urine RBC Trace, Urine WBC 0-5, Ur Epithelial Cells 0-5, Urine Bacteria Trace, Hyaline Casts 0-5 H, Urine Culture Comments No culture indicated 12/25/20 06:55: WBC 4.7 D, RBC 3.82 L, Hgb 10.4 L, Hct 32.3 L, MCV 84.6, MCH 27.2, MCHC 32.2, RDW 13.4, Plt Count 320, MPV 9.1, Immature Gran % (Auto) 0.20, Immature Gran # (Auto) 0.01, Neutrophils % 56.9, Lymphocytes % 22.0, Monocytes % 10.9 H, Eosinophils % 8.7 H, Basophils % 1.3 H, Nucleated RBC % 0.0, Neutrophils # 2.7, Lymphocytes # 1.03 L, Monocytes # 0.5, Eosinophils # 0.4, Absolute Basophils 0.1 12/25/20 06:55: Sodium 145 H, Plasma Sodium 145 H, Potassium 3.2 L D, Chloride 110 H, Carbon Dioxide 25.8, Anion Gap 12.4, BUN 26 H, Creatinine 3.35 H D, Est GFR (Non-Af Amer) 19 L, BUN/Creatinine Ratio 7.8 L, Random Glucose 98, Calcium 7.5 L 12/25/20 06:55: PT 28.1 H, INR (Anticoag Therapy) 2.84 H 12/25/20 06:55: Amylase 62, Lipase 175 12/25/20 06:55: Iron 48 12/25/20 07:35: Stool Occult Blood Negative 12/26/20 06:30: PT 13.8 H, INR (Anticoag Therapy) 1.35 H 12/26/20 06:31: Sodium 144 H, Plasma Sodium 144 H, Potassium 3.6, Chloride 110 H, Carbon Dioxide 22.7 L, Anion Gap 14.9 H, BUN 20, Creatinine 2.71 H D, Est GFR (Non-Af Amer) 24 L D, BUN/Creatinine Ratio 7.4 L, Random Glucose 102, Calcium 8.0 12/27/20 06:19: PT 14.6 H, INR (Anticoag Therapy) 1.43 H 12/27/20 06:19: WBC 7.2 D, RBC 3.91 L, Hgb 10.6 L, Hct 32.9 L, MCV 84.1, MCH 27.1, MCHC 32.2, RDW 13.3, Plt Count 282, MPV 8.6, Immature Gran % (Auto) 0.40, Immature Gran # (Auto) 0.03, Neutrophils % 79.6 H, Lymphocytes % 12.6 L, Monocytes % 7.2, Eosinophils % 0.1, Basophils % 0.1, Nucleated RBC % 0.0, Ne utrophils # 5.7, Lymphocytes # 0.91 L, Monocytes # 0.5, Eosinophils # 0.0, Absolute Basophils 0.0 12/27/20 06:19: Sodium 142, Plasma Sodium 142, Potassium 3.8, Chloride 107 H, Carbon Dioxide 24.5, Anion Gap 14.3 H, BUN 20, Creatinine 2.05 H D, Est GFR (Non-Af Amer) 33 L D, BUN/Creatinine Ratio 9.8, Random Glucose 117 H, Calcium 7.7 L Discharge Location: Home Disposition: Home self-care Condition: Stable Discharge Activity: Activity as tolerated Discharge Diet: Low salt Skilled Nursing Therapy: Physical Therapy Referrals: Chase Ann MD [Primary Care Provider] - Additional Patient Instructions (free text): Coumadin Clinic appointment 12/30/20 at 08:30am. Call [facility] at [phone] once you are back home.They will make arrangements with you for meals to be delivered at noon time. Complete Home Medications List: Complete Home Medication List: Multivitamins [Multivitamin Elda] 1 cap PO DAILY 06/12/12 [place]-3/Dha/Epa/Fish Oil [Fish Oil 1,000 mg Softgel] 1 ea PO DAILY 06/12/12 Cetirizine HCl [Zyrtec] 10 mg PO DAILY PRN 03/20/16 Hydrochlorothiazide [Hydrodiuril] 25 mg PO DAILY 03/20/16 Montelukast Sodium [Singulair] 10 mg PO DAILY PRN 12/03/18 atorvastatin 20 mg tablet 20 mg PO DAILY 03/04/20 warfarin 2 mg tablet 3 mg PO DAILY #90 tab 11/01/20 Ascorbic Acid [Vitamin C] 1 g PO DAILY PRN 11/11/20 ferrous sulfate 325 mg (65 mg iron) tablet 325 mg PO 12/18/20 atenolol 50 mg tablet 50 mg PO DAILY #90 tab 12/20/20 omeprazole 20 mg capsule,delayed release 40 mg PO DAILY #60 cap 12/20/20 potassium chloride 10 mEq tablet,extended release(part/cryst) 20 meq PO DAILY tab 12/20/20 Diltiazem HCl 360 mg PO DAILY 12/24/20 Forms: Patient Portal Registration
[2020-12-27] MEDS: LORATADINE 10 MG TABLET PO PRN (13:49)
[2020-12-27] MEDS: WARFARIN SODIUM 3 MG TABLET PO SCH (17:49)
[2020-12-28] MEDS: POTASSIUM CHLORIDE 10 MEQ in 0.5 NORMAL SALINE 1,000 ML IV SCH (04:57)
[2020-12-28 07:01] LABS: INR 1.75 INR (0.92-1.08); Prothrombin Time (Patient) 17.7 Seconds (9.1-10.7)
[2020-12-28 07:03] LABS: Anion Gap 13.1 mmol/L (6.8-13.8); Carbon Dioxide 23.9 mmol/L (24-32.6); Estimated Creat Clear 28.4
[2020-12-28] MEDS: PANTOPRAZOLE SODIUM 40 MG in NORMAL SALINE 100 ML IV SCH (08:45)
[2020-12-28] MEDS: predniSONE 20 MG TABLET PO SCH (09:58)
[2020-12-28] MEDS: MAGNESIUM OXIDE 400 MG TABLET PO SCH (09:58)
[2020-12-28] MEDS: POTASSIUM CHLORIDE 20 MEQ TABLET.SA PO SCH (09:59)
[2020-12-28] MEDS: DENTAL ADHESIVE 39 APPL TUBE TP SCH (10:00)
[2020-12-28] MEDS: ATENOLOL 25 MG TABLET PO SCH (10:07)
--- NOTE | 2020-12-28 11:03 | DS ---
(1) Acute kidney injury Problem: Resolved (2) A-fib Problem: Chronic Qualifiers: Atrial fibrillation type: paroxysmal Qualified Code(s): I48.0 - Paroxysmal atrial fibrillation (3) Bradycardia Problem: Acute (4) Dehydration Problem: Resolved (5) Hypokalemia Problem: Resolved Date of Discharge:: 12/28/20 Hospital Course: Acosta Milian is an 85-year-old white male with past medical history significant for hypertension, chronic atrial fibrillation, obstructive sleep apnea, GERD, chronic renal failure stage III, hyperlipidemia, history of thyroiditis, pulmonary hypertension, history of ischemic cardiomyopathy who was admitted for chief complaint of "I thought I was going to ". 1 week prior to admission patient started feeling ill, body malaise. He started having poor p.o. intake both solids and fluids. He would get nausea and dry heaves but no vomiting. O van the weekend he developed abdominal pain he thought he was going to and so he went to our emergency room. In the emergency room the patient was found to have acute kidney injury and to be dehydrated. He also had hypokalemia of 2.5. His UA showed possible UTI. His EKG showed sinus rhythm with first-degree AV block and premature ventricular contraction, right bundle branch block. His TSH was 0.020 with an FT4 of 1.64. He was admitted for further evalation and treatment. We did a renal ultrasound and ruled out postrenal causes of his acute kidney injury. We treated this with IV fluids for likely prerenal cause and his creatinine was very slow to improve. On further review the patient had 10 days of amoxicillin for strep throat. Although patient did not have the classic triad of fever, rash and arthralgia the temporal relationship of his kidney failure and his antibiotic intake acute interstitial nephritis was entertained. We started him on oral prednisone empirically. His creatinine today is 1.9. He had been having bradycardia and we have stopped his diltiazem and went down on his atenolol. His heart rate was improved but still significantly low so was unable to discharge yesterday. Today his heart rate is improved and he feels well enough to be discharged to home. Will set up outpatient PT for left knee. Procedures Performed: none Results and Findings: Lab Pending Results 12/23/20 18:35: Sodium 141, Plasma Sodium 141, Potassium 2.9 L, Chloride 102, Carbon Dioxide 25.9, Anion Gap 16.0 H, BUN 33 H, Creatinine 4.05 H D, Est GFR (Non-Af Amer) 15 L D, BUN/Creatinine Ratio 8.1 L, Random Glucose 120 H, Calcium 8.6, Calcium Adj for Albumin 8.4, Total Bilirubin 0.7, AST 19, ALT 25, Alkaline Phosphatase 78, Troponin I Less than 0.017, Total Protein 6.9, Albumin 3.8, TSH 0.020 L 12/23/20 18:35: WBC 8.2, RBC 4.71, Hgb 12.7 L, Hct 39.5 L, MCV 83.9, MCH 27.0, MCHC 32.2, RDW 13.3, Plt Count 416, MPV 8.8, Immature Gran % (Auto) 0.20, Immature Gran # (Auto) 0.02, Neutrophils % 68.3, Lymphocytes % 15.1 L, Monocytes % 10.1 H, Eosinophils % 5.3 H, Basophils % 1.0, Nucleated RBC % 0.0, Neutrophils # 5.6, Lymphocytes # 1.24 L, Monocytes # 0.8, Eosinophils # 0.4, Absolute Basophils 0.1 12/23/20 18:35: ESR 18 H 12/23/20 20:37: SARS-CoV-2 (PCR) Not detected 12/23/20 21:30: Urine Color Yellow, Urine Appearance Clear, Urine pH 5.5, Ur Specific [place] 1.015, Urine Protein 15 H, Urine Glucose (UA) Negative, Urine Ketones Negative, Urine Blood 25 H, Urine Nitrate Negative, Urine Bilirubin Negative, Urine Urobilinogen Normal, Ur Leukocyte Esterase 25 H, Urine RBC Trace, Urine WBC 5-10 H, Ur Epithelial Cells 0-5, Urine Bacteria Trace, Hyaline Casts Trace, Urine Culture Comments Culture to follow 12/24/20 06:18: Sodium 144 H, Plasma Sodium 144 H, Potassium 2.5 L, Chloride 107 H, Carbon Dioxide 27.5, Anion Gap 12.0, BUN 30 H, Creatinine 3.86 H, Est GFR (Non-Af Amer) 16 L, BUN/Creatinine Ratio 7.8 L, Random Glucose 101, Calcium 7.9, Calcium Adj for Albumin 8.4, Total Bilirubin 0.5, AST 15, ALT 21, Alkaline Phosphatase 60, Total Protein 5.6 L, Albumin 3.0 L 12/24/20 06:18: Phosphorus 4.8 H, Magnesium 1.6 12/24/20 15:10: PT Greater than 100.0 H, INR (Anticoag Therapy) Greater than 10.00 H* 12/24/20 16:50: Urine Color Yellow, Urine Appearance Clear, Urine pH 5.0, Ur Specific [place] 1.010, Urine Protein Negative, Urine Glucose (UA) Negative, Urine Ketones Negative, Urine Blood 5 H, Urine Nitrate Negative, Urine Bilirubin Negative, Urine Urobilinogen Normal, Ur Leukocyte Esterase Negative, Urine RBC Trace, Urine WBC 0-5, Ur Epithelial Cells 0-5, Urine Bacteria Trace, Hyaline Casts 0-5 H, Urine Culture Comments No culture indicated 12/25/20 06:55: WBC 4.7 D, RBC 3.82 L, Hgb 10.4 L, Hct 32.3 L, MCV 84.6, MCH 27.2, MCHC 32.2, RDW 13.4, Plt Count 320, MPV 9.1, Immature Gran % (Auto) 0.20, Immature Gran # (Auto) 0.01, Neutrophils % 56.9, Lymphocytes % 22.0, Monocytes % 10.9 H, Eosinophils % 8.7 H, Basophils % 1.3 H, Nucleated RBC % 0.0, Neutrophils # 2.7, Lymphocytes # 1.03 L, Monocytes # 0.5, Eosinophils # 0.4, Absolute Basophils 0.1 12/25/20 06:55: Sodium 145 H, Plasma Sodium 145 H, Potassium 3.2 L D, Chloride 110 H, Carbon Dioxide 25.8, Anion Gap 12.4, BUN 26 H, Creatinine 3.35 H D, Est GFR (Non-Af Amer) 19 L, BUN/Creatinine Ratio 7.8 L, Random Glucose 98, Calcium 7.5 L 12/25/20 06:55: PT 28.1 H, INR (Anticoag Therapy) 2.84 H 12/25/20 06:55: Amylase 62, Lipase 175 12/25/20 06:55: Iron 48 12/25/20 07:35: Stool Occult Blood Negative 12/26/20 06:30: PT 13.8 H, INR (Anticoag Therapy) 1.35 H 12/26/20 06:31: Sodium 144 H, Plasma Sodium 144 H, Potassium 3.6, Chloride 110 H, Carbon Dioxide 22.7 L, Anion Gap 14.9 H, BUN 20, Creatinine 2.71 H D, Est GFR (Non-Af Amer) 24 L D, BUN/Creatinine Ratio 7.4 L, Random Glucose 102, Calcium 8.0 12/27/20 06:19: PT 14.6 H, INR (Anticoag Therapy) 1.43 H 12/27/20 06:19: WBC 7.2 D, RBC 3.91 L, Hgb 10.6 L, Hct 32.9 L, MCV 84.1, MCH 27.1, MCHC 32.2, RDW 13.3, Plt Count 282, MPV 8.6, Immature Gran % (Auto) 0.40, Immature Gran # (Auto) 0.03, Neutrophils % 79.6 H, Lymphocytes % 12.6 L, Monocytes % 7.2, Eosinophils % 0.1, Basophils % 0.1, Nucleated RBC % 0.0, Neutrophils # 5.7, Lymphocytes # 0.91 L, Monocytes # 0.5, Eosinophils # 0.0, Absolute Basophils 0.0 12/27/20 06:19: Sodium 142, Plasma Sodium 142, Potassium 3.8, Chloride 107 H, Carbon Dioxide 24.5, Anion Gap 14.3 H, BUN 20, Creatinine 2.05 H D, Est GFR (Non-Af Amer) 33 L D, BUN/Creatinine Ratio 9.8, Random Glucose 117 H, Calcium 7.7 L 12/28/20 06:25: PT 17.7 H, INR (Anticoag Therapy) 1.75 H 12/28/20 06:25: Sodium 143 H, Plasma Sodium 143 H, Potassium 4.0, Chloride 110 H, Carbon Dioxide 23.9 L, Anion Gap 13.1, BUN 23, Creatinine 1.92 H, Est GFR (Non-Af Amer) 35 L, BUN/Creatinine Ratio 12.0, Random Glucose 103, Calcium 8.0 Discharge Location: Home Disposition: Home self-care Condition: Stable Discharge Activity: Activity as tolerated Discharge Diet: Low salt Referrals: Chase Ann MD [Primary Care Provider] - One Week Problem Oriented Discharge Instructions to Patient/Family: Acute Kidney Injury, Adult Additional Patient Instructions (free text): Coumadin Clinic appointment 12/30/20 at 08:30am. Call [facility] at [phone] once you are back home.They will make arrangements with you for meals to be delivered at noon time. Resume PT at discharge. We will call you with an appointment date and time. [facility] will call you on Wednesday with Dr. Ann follow up appointment. Prescriptions (Any new or edited meds): Warfarin Sodium [Coumadin] 3 mg PO DAILY@1700 #7 tab Transmission Status: Pending to [facility], [place], [place] predniSONE [Prednisone] 10 mg PO DAILY #30 tab Atenolol [Tenormin] 25 mg PO DAILY #30 tab Transmission Status: Pending to [facility], [place], [place] Atenolol [Tenormin] 25 mg PO DAILY #90 tab Complete Home Medications List: Complete Home Medication List: Multivitamins [Multivitamin Elda] 1 cap PO DAILY 06/12/12 [place]-3/Dha/Epa/Fish Oil [Fish Oil 1,000 mg Softgel] 1 ea PO DAILY 06/12/12 Cetirizine HCl [Zyrtec] 10 mg PO DAILY PRN 03/20/16 Montelukast Sodium [Singulair] 10 mg PO DAILY PRN 12/03/18 atorvastatin 20 mg tablet 20 mg PO DAILY 03/04/20 Ascorbic Acid [Vitamin C] 1 g PO DAILY PRN 11/11/20 ferrous sulfate 325 mg (65 mg iron) tablet 325 mg PO 12/18/20 omeprazole 20 mg capsule,delayed release 40 mg PO DAILY #60 cap 12/20/20 potassium chloride 10 mEq tablet,extended release(part/cryst) 20 meq PO DAILY tab 12/20/20 Atenolol [Tenormin] 25 mg PO DAILY #30 tab 12/27/20 Atenolol [Tenormin] 25 mg PO DAILY #90 tab 12/27/20 Warfarin Sodium [Coumadin] 3 mg PO DAILY@1700 #7 tab 12/27/20 predniSONE [Prednisone] 10 mg PO DAILY #30 tab 12/27/20 Amb Orders for Discharge: PT Evaluation and Treatment* Time Frame: 3 Days, Facility: [facility], Location: Rehabilitation Services Forms: Patient Portal Registration
[2020-12-28 12:38] VITALS: BP 155/65
[2020-12-30 21:56] LABS: TSI <89 % baseline (<140)
== END 2020-12-28 13:35 | disposition home or self-care (01) | DRG 684 ==
LOC: ER 15:51 → MS 22:00 → INTOOBSV 22:00 → MS 22:42
PROVIDERS: ADMIT Family Medicine; ATTEND Internal Medicine
DX: E86.0 Dehydration; R00.1 Bradycardia, unspecified; D64.9 Anemia, unspecified; N17.9 Acute kidney failure, unspecified; E87.6 Hypokalemia; N18.30 Chronic kidney disease, stage 3 unspecified; I12.9 Hypertensive chronic kidney disease with stage 1 through stage 4 chronic kidney disease, or unspecified chronic kidney disease; I45.10 Unspecified right bundle-branch block; N28.1 Cyst of kidney, acquired; I48.0 Paroxysmal atrial fibrillation; G47.33 Obstructive sleep apnea (adult) (pediatric); I44.0 Atrioventricular block, first degree